=== PATIENT | female | born 1980 | race Hispanic/Latino ===

== ENCOUNTER 2017-11-16 09:56 | Inpatient (IN) | payer MEDICAID ==
[~2017-11-16] VITALS: Ht 162.6 cm; Wt 80.1 kg
[2017-11-16] VITALS (9 sets, daily range): BP systolic 96–107; BP diastolic 45–60
[2017-11-16] MEDS ORDERED: SODIUM CHLORIDE 0.9% 1000ML 1,000 ML IV ONE ×2 (10:32→11:24)
[2017-11-16 10:47] LABS: BASOPHILS % (AUTO) 0.6 % (0.0-5.0); EOSINOPHILS % (AUTO) 0.3 % (0.0-8.0); HEMATOCRIT 43.2 % (36-48); LYMPHOCYTES % (AUTO) 19.9 % (21.0-51.0); MEAN CORPUSCULAR HEMOGLOBIN 28.8 pg (27.0-33.0); MEAN CORPUSCULAR HGB CONC 34.9 g/dL (32.0-36.0); MEAN CORPUSCULAR VOLUME 82.6 fL (79-99); MONOCYTES % (AUTO) 4.9 % (3.0-13.0); NEUTROPHILS % (AUTO) 74.3 % (40.0-77.0); NUCLEATED RED BLOOD CELLS 0.1 % (0.0-0.19); PLATELET COUNT (AUTO) 342 K/uL (130-400); RED BLOOD CELL COUNT(AUTO) 5.23 MIL/uL (4.00-5.50); RED CELL DISTRIBUTION WIDTH 14.3 % (11.0-15.5); WHITE BLOOD COUNT (AUTO) 6.3 K/uL (4.8-10.8)
[2017-11-16 11:00] LABS: BILIRUBIN,TOTAL 0.9 mg/dL (0.2-1.0); POTASSIUM 4.6 mmol/L (3.5-5.1); TOTAL PROTEIN, SERUM 8.1 g/dL (6.0-8.3)
[2017-11-16] MEDS ORDERED: SODIUM CHLORIDE 0.9% 1000ML 1,000 ML IV SCH (11:48)
[2017-11-16] MEDS ORDERED: SODIUM CHLORIDE 0.9% 100 ML IV ONE (11:52)
[2017-11-16] MEDS ORDERED: INSULIN HUMULIN R 100 UNIT/ML 3ML ONE (11:54)
[2017-11-16] MEDS ORDERED: ACETAMINOPHEN 325 MG TAB PO PRN ×2 (12:00)
[2017-11-16] MEDS ORDERED: MORPHINE SULFATE 2 MG/ML 1ML SYG IV PRN (12:00)
[2017-11-16] MEDS ORDERED: ACETAMINOPHEN-CODEINE 300/30MG TAB PO PRN (12:00)
[2017-11-16] MEDS ORDERED: LACTULOSE 20 GM/30 ML UDCUP PO PRN (12:00)
[2017-11-16] MEDS ORDERED: ONDANSETRON HCL 4 MG/2 ML VIAL IV PRN (12:00)
[2017-11-16] MEDS ORDERED: MAG HYDROX/AL HYDROX/SIMETH ES 30 ML SUSP UDCUP PO PRN (12:00)
[2017-11-16] MEDS ORDERED: NITROGLYCERIN 0.4 MG SL TAB SL PRN (12:00)
[2017-11-16] MEDS ORDERED: HYDRALAZINE HCL 20 MG/ML VIAL IV PRN (12:00)
[2017-11-16] MEDS ORDERED: GUAIFENESIN-DM 200/20 MG 10 ML PO PRN (12:00)
[2017-11-16 12:07] LABS: ABG OXYGEN SATURATION 96.3 % (95.0-99.0); ABG PCO2 38 mmHg (32-45)
[2017-11-16 12:54] LABS: BILIRUBIN,URINE Negative (NEGATIVE); COLOR,URINE Yellow (YELLOW); GLUCOSE, URINE (UA) >=1000 mg/dL (NEGATIVE); KETONES,URINE Negative (NEGATIVE); LEUKOCYTE ESTERASE ,URINE Negative (NEGATIVE); NITRATE,URINE Negative (NEGATIVE); OCCULT BLOOD,URINE Negative (NEGATIVE); PH,URINE 5.5 (5.0-8.0); PROTEIN,URINE POS 2+ (NEGATIVE); UROBILINOGEN,URINE 0.2 mg/dL (0.2-1.0)
[2017-11-16 12:56] LABS: APPEARANCE,URINE CLEAR (CLEAR)
[2017-11-16] MEDS ORDERED: POTASSIUM CHLORIDE 20MEQ/100ML 100 ML IV PRN (13:15)
[2017-11-16] MEDS ORDERED: LIDOCAINE HCL-MPF 1% 2ML VIAL IVP PRN (13:15)
[2017-11-16] MEDS ORDERED: POTASSIUM CHLORIDE 10% ELIXIR 20 MEQ/15 ML UDCUP PO PRN (13:15)
[2017-11-16 13:16] LABS: BACTERIA,URINE Moderate /HPF (None Seen); RBC,URINE 0-1 /HPF (0-1); WBC,URINE 0-1 /HPF (0-1)
[2017-11-16] MEDS ORDERED: INSU10VI4 SQ (17:09)
[2017-11-16] MEDS ORDERED: LEVO150T11 PO (17:09)
[2017-11-16] MEDS ORDERED: LOSA50TA37 PO (17:09)
[2017-11-16] MEDS ORDERED: OMEP40CA37 PO (17:09)
[2017-11-16] MEDS ORDERED: FENO145T37 PO (17:09)
[2017-11-16] MEDS ORDERED: DEXTROSE 5 %-0.45 % NACL 1,000 ML IV ONE (18:18)
[2017-11-16 18:27] LABS: CREATININE 1.6 mg/dL (0.5-1.5); MAGNESIUM 1.6 mg/dL (1.80-2.40); POTASSIUM 4.2 mmol/L (3.5-5.1)
[2017-11-16] MEDS: DEXTROSE 5 %-0.45 % NACL 1,000 ML IV SCH (18:30)
[2017-11-17] VITALS (16 sets, daily range): BP systolic 89–120; BP diastolic 38–63
[2017-11-17] MEDS: DEXTROSE 5 %-0.45 % NACL 1,000 ML IV SCH ×2 (00:56→08:51)
[2017-11-17 04:10] LABS: HEMATOCRIT 35.4 % (36-48); MEAN CORPUSCULAR HEMOGLOBIN 28.9 pg (27.0-33.0); MEAN CORPUSCULAR HGB CONC 34.8 g/dL (32.0-36.0); MEAN CORPUSCULAR VOLUME 83.1 fL (79-99); PLATELET COUNT (AUTO) 275 K/uL (130-400); RED BLOOD CELL COUNT(AUTO) 4.26 MIL/uL (4.00-5.50); RED CELL DISTRIBUTION WIDTH 13.8 % (11.0-15.5); WHITE BLOOD COUNT (AUTO) 8.2 K/uL (4.8-10.8)
[2017-11-17 04:22] LABS: BAND NEUTROPHILS % (MANUAL) 13 % (0-2); EOSINOPHILS % (MANUAL) 6 % (1-6); LYMPHOCYTES % (MANUAL) 42 % (22-44); MAN.DIFF COMMENT-IMPRESSION MANUAL DIFFERENTIAL; MONOCYTES % (MANUAL) 2 % (2-9); SEGMENTED NEUTROPHILS % 37 % (40-70)
[2017-11-17 04:27] LABS: ALBUMIN 2.4 g/dL (3.5-5.0); BILIRUBIN,TOTAL 0.3 mg/dL (0.2-1.0); CREATININE 1.2 mg/dL (0.5-1.5); MAGNESIUM 1.6 mg/dL (1.80-2.40); POTASSIUM 3.5 mmol/L (3.5-5.1); TOTAL PROTEIN, SERUM 6.7 g/dL (6.0-8.3)
[2017-11-17] MEDS: ENOXAPARIN SODIUM 40 MG/0.4 ML SYRINGE SQ SCH (08:52)
[2017-11-17] MEDS ORDERED: FAMOTIDINE/PF 20 MG/2 ML VIAL IV SCH (09:00)
[2017-11-17] MEDS: SODIUM CHLORIDE 0.9% 1000ML 1,000 ML IV SCH ×3 (10:32→21:53)
[2017-11-17] MEDS: PANTOPRAZOLE SODIUM 40 MG TABLET.DR PO SCH (10:32)
[2017-11-17] MEDS ORDERED: INSULIN LISPRO PROTAMINE SQ SCH (11:30)
[2017-11-17] MEDS ORDERED: INSULIN LISPRO SQ SCH (11:30)
[2017-11-17] MEDS ORDERED: [UNRECOGNIZED DRUG - OTHER] SQ SCH (11:30)
[2017-11-17] MEDS: INSULIN HUMULIN 70/30 100 UNIT/ML 3ML SQ SCH ×2 (11:53→16:21)
[2017-11-18 03:17] VITALS: BP 101/56
[2017-11-18 04:04] LABS: CREATININE 0.9 mg/dL (0.5-1.5); POTASSIUM 3.2 mmol/L (3.5-5.1)
[2017-11-18] MEDS: SODIUM CHLORIDE 0.9% 1000ML 1,000 ML IV SCH ×3 (04:29→20:26)
[2017-11-18] MEDS: POTASSIUM CHLORIDE 20 MEQ ERTAB PO PRN ×3 (04:52→12:18)
[2017-11-18] MEDS: LEVOTHYROXINE 150 MCG TABLET PO SCH (06:18)
[2017-11-18] MEDS: INSULIN HUMULIN 70/30 100 UNIT/ML 3ML SQ SCH ×3 (06:24→16:24)
[2017-11-18 07:37] VITALS: BP 115/60
[2017-11-18] MEDS: FENOFIBRATE NANOCRYSTALLIZED 145 MG TAB PO SCH (07:54)
[2017-11-18] MEDS: LOSARTAN 50 MG TABLET PO SCH (07:54)
[2017-11-18] MEDS: PANTOPRAZOLE SODIUM 40 MG TABLET.DR PO SCH (07:54)
[2017-11-18] MEDS: ENOXAPARIN SODIUM 40 MG/0.4 ML SYRINGE SQ SCH (07:54)
[2017-11-18] MEDS ORDERED: LEVOTHYROXINE 150 MCG TABLET PO SCH (09:00)
[2017-11-18 11:29] VITALS: BP 111/61
[2017-11-18 16:00] VITALS: BP 109/62
[2017-11-18 18:51] VITALS: BP 107/66
[2017-11-18] MEDS ORDERED: INSULIN REGULAR, HUMAN 3ML 100 UNIT in SODIUM CHLORIDE 0.9% 99 ML IV SCH ×2 (20:15)
[2017-11-18 22:57] VITALS: BP_SYST 114; BP_SYST 166; BP_DIAS 60; BP_DIAS 85
[2017-11-19] MEDS: SODIUM CHLORIDE 0.9% 1000ML 1,000 ML IV SCH ×2 (00:19→05:44)
[2017-11-19 03:18] VITALS: BP 123/59
[2017-11-19 04:59] LABS: ALBUMIN 2.3 g/dL (3.5-5.0); BILIRUBIN,TOTAL 0.3 mg/dL (0.2-1.0); CREATININE 0.9 mg/dL (0.5-1.5); POTASSIUM 3.5 mmol/L (3.5-5.1); TOTAL PROTEIN, SERUM 6.5 g/dL (6.0-8.3)
[2017-11-19] MEDS: LEVOTHYROXINE 150 MCG TABLET PO SCH (05:42)
[2017-11-19] MEDS: POTASSIUM CHLORIDE 20 MEQ ERTAB PO PRN ×2 (05:43→09:04)
[2017-11-19] MEDS: INSULIN HUMULIN 70/30 100 UNIT/ML 3ML SQ SCH ×2 (06:04→11:51)
[2017-11-19 07:00] VITALS: BP 118/65
[2017-11-19] MEDS: PANTOPRAZOLE SODIUM 40 MG TABLET.DR PO SCH (09:04)
[2017-11-19] MEDS: FENOFIBRATE NANOCRYSTALLIZED 145 MG TAB PO SCH (09:04)
[2017-11-19] MEDS: LOSARTAN 50 MG TABLET PO SCH (09:04)
[2017-11-19] MEDS: ENOXAPARIN SODIUM 40 MG/0.4 ML SYRINGE SQ SCH (09:17)
[2017-11-19 11:00] VITALS: BP 124/69
== END 2017-11-19 12:55 | disposition home or self-care (01) | DRG 282 ==
LOC: EDH 09:56 → EDHIP 09:57 → 2CH 16:39 → 2DH 11-17 14:33
PROVIDERS: ADMIT Internal Medicine; ATTEND Internal Medicine
DX: K85.90 Acute pancreatitis without necrosis or infection, unspecified (principal); E10.10 Type 1 diabetes mellitus with ketoacidosis without coma; N17.9 Acute kidney failure, unspecified; K76.0 Fatty (change of) liver, not elsewhere classified; E03.9 Hypothyroidism, unspecified; E78.5 Hyperlipidemia, unspecified; I10 Essential (primary) hypertension; Z79.4 Long term (current) use of insulin; Z83.3 Family history of diabetes mellitus
CPT/HCPCS: 36415; 36600; 74176; 80048; 80053; 81001; 82009; 82150; 82803; 82948; 83690; 83735; 84100; 84478; 85025; 87040; 99291; J1650; J1815; J2405; J3490; J7030; J7042

== ENCOUNTER 2018-04-02 13:12 | Inpatient (IN) | payer MEDICAID ==
[~2018-04-02 13:12] MED LIST: FENO145T37 PO; INSU100V33 SQ; LEVO150T11 PO; LOSA50TA25 PO; OMEG1CAP31 PO; OMEP40CA37 PO
[2018-04-02] MEDS ORDERED: ONDANSETRON HCL 4 MG/2 ML VIAL ONE (13:57)
[2018-04-02] MEDS ORDERED: SODIUM CHLORIDE 0.9% 1000ML 1,000 ML IV ONE ×3 (13:57→18:36)
[2018-04-02] MEDS ORDERED: METOCLOPRAMIDE 10 MG/2 ML VIAL ONE (14:16)
[2018-04-02 14:17] LABS: APPEARANCE,URINE Clear (CLEAR); BILIRUBIN,URINE Negative (NEGATIVE); COLOR,URINE Yellow (YELLOW); GLUCOSE, URINE (UA) >=1000 mg/dL (NEGATIVE); KETONES,URINE >=80 mg/dL (NEGATIVE); LEUKOCYTE ESTERASE ,URINE Negative (NEGATIVE); NITRATE,URINE Negative (NEGATIVE); OCCULT BLOOD,URINE Small (NEGATIVE); PROTEIN,URINE 300 (NEGATIVE); UROBILINOGEN,URINE 0.2 mg/dL (0.2-1.0)
[2018-04-02 14:28] LABS: POTASSIUM 3.5 mmol/L (3.5-5.1)
[2018-04-02 15:05] LABS: BACTERIA,URINE Rare /HPF (None Seen); RBC,URINE None Seen /HPF (0-1); SQUAMOUS EPITHELIAL CELL,UR 0-2 /HPF (0-2); WBC,URINE 0-1 /HPF (0-1)
[2018-04-02 15:06] LABS: BASOPHILS % (AUTO) 0.9 % (0.0-5.0); EOSINOPHILS % (AUTO) 1.3 % (0.0-8.0); LYMPHOCYTES % (AUTO) 19.2 % (21.0-51.0); MEAN CORPUSCULAR HEMOGLOBIN 30.8 pg (27.0-33.0); MEAN CORPUSCULAR HGB CONC 36.2 g/dL (32.0-36.0); MEAN CORPUSCULAR VOLUME 85.1 fL (79-99); MONOCYTES % (AUTO) 4.5 % (3.0-13.0); NEUTROPHILS % (AUTO) 74.1 % (40.0-77.0); NUCLEATED RED BLOOD CELLS 0.4 % (0.0-0.19); PLATELET COUNT (AUTO) 307 K/uL (130-400); RED BLOOD CELL COUNT(AUTO) 4.82 MIL/uL (4.00-5.50); RED CELL DISTRIBUTION WIDTH 13.5 % (11.0-15.5); WHITE BLOOD COUNT (AUTO) 14.7 K/uL (4.8-10.8)
[2018-04-02] MEDS ORDERED: MORPHINE SULFATE 4 MG/1ML SYG ONE (15:08)
[2018-04-02 15:12] LABS: CREATININE 0.9 mg/dL (0.5-1.5)
[2018-04-02 15:14] LABS: BILIRUBIN,TOTAL 0.5 mg/dL (0.2-1.0)
[2018-04-02 15:15] LABS: ALBUMIN 3.2 g/dL (3.5-5.0); TOTAL PROTEIN, SERUM 7.3 g/dL (6.0-8.3)
[2018-04-02] MEDS ORDERED: PROMETHAZINE HCL 25 MG/ML 1ML AMPULE IM ONE (17:44)
[2018-04-02] MEDS ORDERED: SODIUM CHLORIDE 0.9% 1000ML 1,000 ML IV SCH (17:44)
[2018-04-02] MEDS ORDERED: INSULIN GLARGINE 100 UNITS/ML 10 ML VIAL SQ ONE (17:45)
[2018-04-02] MEDS ORDERED: MAG HYDROX/AL HYDROX/SIMETH ES 30 ML SUSP UDCUP PO PRN (17:45)
[2018-04-02] MEDS ORDERED: ZOLPIDEM TARTRATE 5 MG TAB PO PRN (17:45)
[2018-04-02] MEDS ORDERED: ACETAMINOPHEN 325 MG TAB PO PRN (17:45)
[2018-04-02] MEDS ORDERED: ZOSYN 3.375GM+NS 50ML 50 ML IV ONE (18:46)
[2018-04-02] MEDS ORDERED: SODIUM CHLORIDE 0.9% 50 ML IV ONE (18:55)
[2018-04-02 19:13] LABS: HEMOGLOBIN A1C 11.6 % (4.0-6.0)
[2018-04-02] MEDS: ZOSYN 3.375GM+NS 50ML 50 ML IV SCH (19:39)
[2018-04-02 19:53] VITALS: BP 163/76
[2018-04-02] MEDS: LACTATED RINGERS 1000ML 1,000 ML IV SCH (19:53)
[2018-04-02] MEDS: MORPHINE SULFATE 2 MG/ML 1ML SYG IV PRN (20:56)
[2018-04-02] MEDS: ONDANSETRON HCL 4 MG/2 ML VIAL IV PRN (20:57)
[2018-04-02 21:04] LABS: MAGNESIUM 1.6 mg/dL (1.80-2.40); THYROID STIMULATING HORMONE 2.61 uIU/mL (0.36-3.74)
[2018-04-02] MEDS: INSULIN LISPRO 100 UNIT/ML 3ML SQ SCH (21:06)
[2018-04-02 23:13] LABS: SODIUM SERUM 122 mmol/L (136-145)
[2018-04-02 23:14] LABS: PHOSPHORUS 2.5 mg/dL (2.5-4.9); UREA NITROGEN, BLOOD 10 mg/dL (7-18)
[2018-04-02 23:16] LABS: CREATININE 1.2 mg/dL (0.5-1.5); GLOMERULAR FILTR. RATE CALC 54 mL/min (>60)
[2018-04-02 23:25] LABS: CHLORIDE 90 mmol/L (101-111); GLUCOSE,RANDOM 441 mg/dL (70-105)
[2018-04-02 23:52] VITALS: BP 133/69
[2018-04-03] MEDS: INSULIN LISPRO 100 UNIT/ML 3ML SQ SCH ×4 (00:07→20:33)
[2018-04-03] MEDS: ONDANSETRON HCL 4 MG/2 ML VIAL IV PRN ×4 (02:36→23:02)
[2018-04-03] MEDS: MORPHINE SULFATE 2 MG/ML 1ML SYG IV PRN ×4 (02:37→23:02)
[2018-04-03 04:04] VITALS: BP 107/62
[2018-04-03] MEDS: ZOSYN 3.375GM+NS 50ML 50 ML IV SCH ×3 (04:55→20:37)
[2018-04-03 08:04] VITALS: BP 81/46
[2018-04-03] MEDS: PANTOPRAZOLE 40 MG/VIAL IVP SCH (08:54)
[2018-04-03] MEDS ORDERED: ENOXAPARIN SODIUM 40 MG/0.4 ML SYRINGE SQ SCH ×2 (09:00)
[2018-04-03 11:33] VITALS: BP 95/51
[2018-04-03] MEDS: LACTATED RINGERS 1000ML 1,000 ML IV SCH (12:03)
[2018-04-03 15:24] LABS: CARBON DIOXIDE 14 mmol/L (21-32); CHLORIDE 94 mmol/L (101-111); POTASSIUM 4.2 mmol/L (3.5-5.1); SODIUM SERUM 127 mmol/L (136-145)
[2018-04-03 16:29] VITALS: BP 96/55
[2018-04-03 16:36] LABS: GLUCOSE,RANDOM 516 mg/dL (70-105)
[2018-04-03] MEDS ORDERED: PHARMACY COMMUNICATION MISC SCH (17:00)
[2018-04-03] MEDS: SODIUM CHLORIDE 0.9% 1000ML 1,000 ML IV SCH ×3 (17:00→22:00)
[2018-04-03] MEDS ORDERED: SODIUM CHLORIDE 0.9% 1000ML 1,000 ML IV ONE ×2 (17:28→17:29)
[2018-04-03] MEDS ORDERED: SODIUM CHLORIDE 0.9% 1000ML 1,000 ML IV SCH (17:44)
[2018-04-03 19:27] VITALS: BP 109/56
[2018-04-03] MEDS: INSULIN GLARGINE 100 UNITS/ML 10 ML VIAL SQ SCH (20:36)
[2018-04-03 21:49] LABS: CARBON DIOXIDE 13 mmol/L (21-32); CHLORIDE 99 mmol/L (101-111); POTASSIUM 3.7 mmol/L (3.5-5.1); SODIUM SERUM 131 mmol/L (136-145)
[2018-04-03 21:58] LABS: GLUCOSE,RANDOM 440 mg/dL (70-105)
[2018-04-03 22:27] LABS: UREA NITROGEN, BLOOD 22 mg/dL (7-18)
[2018-04-03 22:28] LABS: CREATININE 1.8 mg/dL (0.5-1.5); GLOMERULAR FILTR. RATE CALC 34 mL/min (>60)
[2018-04-03 23:41] VITALS: BP 93/47
[2018-04-04] MEDS: INSULIN LISPRO 100 UNIT/ML 3ML SQ SCH ×8 (00:56→21:00)
[2018-04-04] MEDS: SODIUM CHLORIDE 0.9% 1000ML 1,000 ML IV SCH ×7 (01:17→14:59)
[2018-04-04 03:52] VITALS: BP 101/52
[2018-04-04 05:06] LABS: POTASSIUM 4.3 mmol/L (3.5-5.1); SODIUM SERUM 139 mmol/L (136-145)
[2018-04-04 05:07] LABS: CARBON DIOXIDE 20 mmol/L (21-32); CHLORIDE 108 mmol/L (101-111); GLOMERULAR FILTR. RATE CALC 30 mL/min (>60); GLUCOSE,RANDOM 231 mg/dL (70-105); UREA NITROGEN, BLOOD 28 mg/dL (7-18)
[2018-04-04] MEDS: ZOSYN 3.375GM+NS 50ML 50 ML IV SCH ×2 (05:32→13:39)
[2018-04-04] MEDS: ONDANSETRON HCL 4 MG/2 ML VIAL IV PRN ×4 (05:43→17:13)
[2018-04-04] MEDS: INSULIN GLARGINE 100 UNITS/ML 10 ML VIAL SQ SCH ×2 (06:08→21:46)
[2018-04-04 07:57] VITALS: BP 96/46
[2018-04-04] MEDS: PANTOPRAZOLE 40 MG/VIAL IVP SCH (10:09)
[2018-04-04 12:19] VITALS: BP 95/51
[2018-04-04 13:17] LABS: CARBON DIOXIDE 19 mmol/L (21-32); CHLORIDE 107 mmol/L (101-111); GLOMERULAR FILTR. RATE CALC 30 mL/min (>60); GLUCOSE,RANDOM 226 mg/dL (70-105); POTASSIUM 3.4 mmol/L (3.5-5.1); SODIUM SERUM 138 mmol/L (136-145); UREA NITROGEN, BLOOD 27 mg/dL (7-18)
[2018-04-04 16:43] VITALS: BP 93/51
[2018-04-04 19:00] VITALS: BP 98/55
[2018-04-04] MEDS ORDERED: LACTULOSE 20 GM/30 ML UDCUP PO SCH (21:00)
[2018-04-04] MEDS: CITRIC ACID/SODIUM CITRATE 30 ML UDCUP PO SCH (21:40)
[2018-04-04 23:00] VITALS: BP 113/63
[2018-04-05 03:00] VITALS: BP 114/57
[2018-04-05 04:09] LABS: HEMATOCRIT 29.7 % (36-48); MEAN CORPUSCULAR HGB CONC 35.8 g/dL (32.0-36.0); PLATELET COUNT (AUTO) 181 K/uL (130-400); RED BLOOD CELL COUNT(AUTO) 3.54 MIL/uL (4.00-5.50); RED CELL DISTRIBUTION WIDTH 14.7 % (11.0-15.5)
[2018-04-05 04:28] LABS: CREATININE 1.4 mg/dL (0.5-1.5); MAGNESIUM 1.5 mg/dL (1.80-2.40); PHOSPHORUS 1.1 mg/dL (2.5-4.9); POTASSIUM 3.1 mmol/L (3.5-5.1)
[2018-04-05] MEDS: SODIUM CHLORIDE 0.9% 1000ML 1,000 ML IV SCH (05:41)
[2018-04-05] MEDS: INSULIN LISPRO 100 UNIT/ML 3ML SQ SCH ×7 (07:30→21:34)
[2018-04-05 08:00] VITALS: BP 105/59
[2018-04-05] MEDS ORDERED: POTASSIUM CHLORIDE 20MEQ/100ML 100 ML IV PRN (10:15)
[2018-04-05] MEDS ORDERED: LIDOCAINE HCL-MPF 1% 2ML VIAL IVP PRN (10:15)
[2018-04-05] MEDS: CITRIC ACID/SODIUM CITRATE 30 ML UDCUP PO SCH ×3 (11:40→22:52)
[2018-04-05 12:00] VITALS: BP 118/57
[2018-04-05] MEDS: POTASSIUM CHLORIDE 20 MEQ ERTAB PO PRN ×3 (13:30→18:52)
[2018-04-05 16:00] VITALS: BP 127/71
[2018-04-05] MEDS: FISH OIL 1000 MG/CAP PO SCH (17:05)
[2018-04-05] MEDS ORDERED: POTASSIUM CHLORIDE 40 MEQ in SODIUM CHLORIDE 0.9% 1000ML 1,000 ML IV SCH (18:41)
[2018-04-05 20:28] VITALS: BP 127/60
[2018-04-05] MEDS ORDERED: FENOFIBRATE NANOCRYSTALLIZED 145 MG TAB PO SCH (21:00)
[2018-04-05] MEDS: INSULIN GLARGINE 100 UNITS/ML 10 ML VIAL SQ SCH (21:35)
[2018-04-06 00:34] VITALS: BP 122/58
[2018-04-06 04:04] VITALS: BP 142/67
[2018-04-06] MEDS ORDERED: LEVOTHYROXINE 150 MCG TABLET PO SCH (06:30)
[2018-04-06] MEDS: INSULIN LISPRO 100 UNIT/ML 3ML SQ SCH ×2 (06:42→06:50)
[2018-04-06] MEDS ORDERED: PANTOPRAZOLE SODIUM 40 MG TABLET.DR PO SCH (07:30)
[2018-04-06 08:00] VITALS: BP 131/62
[2018-04-06] MEDS: CITRIC ACID/SODIUM CITRATE 30 ML UDCUP PO SCH (08:33)
[2018-04-06] MEDS ORDERED: LOSARTAN 50 MG TABLET PO SCH (09:00)
[2018-04-06] MEDS ORDERED: INSU100V SQ (09:55)
[2018-04-06] MEDS ORDERED: INSLAN SQ (09:55)
[2018-04-06] MEDS: FISH OIL 1000 MG/CAP PO SCH (10:09)
[2018-04-06 12:00] VITALS: BP 126/74
== END 2018-04-06 12:54 | disposition home or self-care (01) | DRG 282 ==
LOC: EDH 13:12 → 2DH 13:13 → 4BH 04-05 17:50 → 3BH 04-06 05:59
PROVIDERS: ADMIT Internal Medicine; ATTEND Internal Medicine
DX: K85.90 Acute pancreatitis without necrosis or infection, unspecified (principal); R65.11 Systemic inflammatory response syndrome (SIRS) of non-infectious origin with acute organ dysfunction; N17.9 Acute kidney failure, unspecified; E11.22 Type 2 diabetes mellitus with diabetic chronic kidney disease; E11.65 Type 2 diabetes mellitus with hyperglycemia; E87.2 Acidosis; Z79.4 Long term (current) use of insulin; E86.1 Hypovolemia; E87.6 Hypokalemia; N18.9 Chronic kidney disease, unspecified; E78.5 Hyperlipidemia, unspecified; Z90.49 Acquired absence of other specified parts of digestive tract; Z82.49 Family history of ischemic heart disease and other diseases of the circulatory system; Z83.3 Family history of diabetes mellitus
CPT/HCPCS: 36415; 74176; 80048; 80053; 80339; 81001; 82010; 82150; 82948; 83036; 83605; 83690; 83735; 84100; 84443; 85025; 85027; 87040; 87088; C9113; J1650; J2270; J2405; J2543; J2550; J2765; J3480; J7030; J7120

== ENCOUNTER 2018-11-13 21:18 | Inpatient (IN) | payer MEDICAID | END 2018-11-18 15:30 | disposition home or self-care (01) | LOC: EDH 21:18 → WSH 11-17 19:55 → EDHIP 21:19 → 4CH 11-14 02:45 | DX: K85.90 Acute pancreatitis without necrosis or infection, unspecified (principal); E11.9 Type 2 diabetes mellitus without complications; E78.2 Mixed hyperlipidemia; I10 Essential (primary) hypertension; E87.6 Hypokalemia ==

== ENCOUNTER 2019-11-17 14:34 | Inpatient (IN) | payer MEDICAID ==
[~2019-11-17] VITALS: Ht 160 cm; Wt 77.1 kg
[~2019-11-17 14:34] MED LIST changes: +ATOR40TA69 PO; +FENO145T26 PO; -FENO145T37 PO; +INSLAN SQ; +INSU100V SQ; -INSU100V33 SQ; -LOSA50TA25 PO; +LOSA50TA64 PO; +NIAC250T34 PO; +OMEP40CA13 PO; -OMEP40CA37 PO
[2019-11-17 15:07] LABS: APPEARANCE,URINE Clear (CLEAR); BILIRUBIN,URINE Negative (NEGATIVE); COLOR,URINE Yellow (YELLOW); GLUCOSE, URINE (UA) >=1000 mg/dL (NEGATIVE); KETONES,URINE 15 mg/dL (NEGATIVE); LEUKOCYTE ESTERASE ,URINE Negative (NEGATIVE); NITRATE,URINE Negative (NEGATIVE); OCCULT BLOOD,URINE Negative (NEGATIVE); PROTEIN,URINE 300 mg/dL (NEGATIVE)
[2019-11-17 15:17] LABS: BACTERIA,URINE Rare /HPF (None Seen); RBC,URINE None Seen /HPF (0-1); WBC,URINE 0-1 /HPF (0-1)
[2019-11-17 15:18] LABS: SQUAMOUS EPITHELIAL CELL,UR 0-2 /HPF (0-2)
[2019-11-17 15:40] LABS: BASOPHILS % (AUTO) 0.4 % (0.0-5.0); EOSINOPHILS % (AUTO) 0.8 % (0.0-8.0); HEMATOCRIT 39.5 % (36-48); LYMPHOCYTES % (AUTO) 11.2 % (21.0-51.0); MEAN CORPUSCULAR HGB CONC 35.9 g/dL (32.0-36.0); MEAN CORPUSCULAR VOLUME 83.3 fL (79-99); MONOCYTES % (AUTO) 4.1 % (3.0-13.0); NEUTROPHILS % (AUTO) 83.1 % (40.0-77.0); PLATELET COUNT (AUTO) 333 K/uL (130-400); RED BLOOD CELL COUNT(AUTO) 4.74 MIL/uL (4.00-5.50); RED CELL DISTRIBUTION WIDTH 13.2 % (11.0-15.5); WHITE BLOOD COUNT (AUTO) 13.8 K/uL (4.8-10.8)
[2019-11-17 15:59] LABS: BILIRUBIN,TOTAL 0.9 mg/dL (0.2-1.0); POTASSIUM 5.6 mmol/L (3.5-5.1)
[2019-11-17] MEDS ORDERED: ONDANSETRON HCL 4 MG/2 ML VIAL ONE ×2 (16:35→19:43)
[2019-11-17] MEDS ORDERED: SODIUM CHLORIDE 0.9% 100 ML IV ONE (16:35)
[2019-11-17 16:36] LABS: CREATININE 0.9 mg/dL (0.5-1.5)
[2019-11-17 16:37] LABS: ALBUMIN 3.5 g/dL (3.5-5.0); TOTAL PROTEIN, SERUM 6.5 g/dL (6.0-8.3)
[2019-11-17] MEDS ORDERED: INSULIN HUMULIN R 100 UNIT/ML 3ML ONE (16:37)
[2019-11-17] MEDS ORDERED: FAMOTIDINE/PF 20 MG/2 ML VIAL IV ONE (16:59)
[2019-11-17] MEDS ORDERED: KETOROLAC TROMETHAMINE 30MG/ML ONE (16:59)
[2019-11-17 18:05] LABS: LDL DIRECT 75 mg/dL (0-99)
[2019-11-17 18:27] LABS: CHOLESTEROL 564 mg/dL (<200); HDL CHOLESTEROL 57 mg/dL (35-85); TRIGLYCERIDES 4134 mg/dL (30-200)
[2019-11-17] MEDS ORDERED: DIPHENHYDRAMINE HCL 25 MG CAPSULE PO PRN (19:00)
[2019-11-17] MEDS ORDERED: NITROGLYCERIN 0.4 MG SL TAB SL PRN (19:00)
[2019-11-17] MEDS ORDERED: ACETAMINOPHEN 325 MG TAB PO PRN ×2 (19:00)
[2019-11-17] MEDS ORDERED: GUAIFENESIN-DM 200/20 MG 10 ML PO PRN (19:00)
[2019-11-17] MEDS ORDERED: MAG HYDROX/AL HYDROX/SIMETH ES 30 ML SUSP UDCUP PO PRN (19:00)
[2019-11-17] MEDS ORDERED: DiphenhydrAMINE HCL 50 MG/ML VIAL IV PRN (19:00)
[2019-11-17] MEDS ORDERED: LACTULOSE 20 GM/30 ML UDCUP PO PRN (19:00)
[2019-11-17] MEDS ORDERED: ALBUTEROL SULFATE 0.083% 2.5 MG/3 ML INH IH PRN (19:00)
[2019-11-17] MEDS: FAMOTIDINE/PF 20 MG/2 ML VIAL IV SCH (21:00)
[2019-11-17 21:27] LABS: ABG HCO3 26.4 mmol/L (21.0-28.0); ABG OXYGEN SATURATION 95.5 % (95.0-99.0); ABG PCO2 45 mmHg (32-45)
[2019-11-17 22:07] VITALS: BP 147/74
[2019-11-17 22:15] VITALS: BP 153/70
[2019-11-17 22:24] LABS: CREATININE 0.8 mg/dL (0.5-1.5); POTASSIUM 4.1 mmol/L (3.5-5.1)
[2019-11-17 22:30] VITALS: BP 159/69
[2019-11-17 22:45] VITALS: BP 167/74
[2019-11-17 23:00] VITALS: BP 157/69
[2019-11-17] MEDS: DEXTROSE 5 % AND 0.9 % NACL 1,000 ML IV SCH (23:00)
--- NOTE | 2019-11-17 23:21 | NUR ---
2206 Patient admitted from ER. Insulin drip infusing at 1 unit/hr into patent left arm 20g IV. Glucometer done. Results 310/ Insulin drip increased to 5 units/hr. [address] Garcia. Informed of new consult. Report given on pt status. Order received.
[2019-11-17 23:30] VITALS: BP 161/80
[2019-11-18] VITALS (25 sets, daily range): BP systolic 100–151; BP diastolic 54–76
[2019-11-18] MEDS: DEXTROSE 5 % AND 0.9 % NACL 1,000 ML IV SCH ×4 (03:00→23:27)
[2019-11-18 05:00] LABS: BASOPHILS % (AUTO) 0.3 % (0.0-5.0); EOSINOPHILS % (AUTO) 1.5 % (0.0-8.0); HEMATOCRIT 34.4 % (36-48); MEAN CORPUSCULAR HEMOGLOBIN 28.6 pg (27.0-33.0); MEAN CORPUSCULAR HGB CONC 34.6 g/dL (32.0-36.0); MEAN CORPUSCULAR VOLUME 82.7 fL (79-99); MONOCYTES % (AUTO) 7.4 % (3.0-13.0); NEUTROPHILS % (AUTO) 73.4 % (40.0-77.0); PLATELET COUNT (AUTO) 234 K/uL (130-400); RED BLOOD CELL COUNT(AUTO) 4.16 MIL/uL (4.00-5.50); RED CELL DISTRIBUTION WIDTH 13.1 % (11.0-15.5); WHITE BLOOD COUNT (AUTO) 9.9 K/uL (4.8-10.8)
[2019-11-18 05:39] LABS: ALBUMIN 2.4 g/dL (3.5-5.0); BILIRUBIN,TOTAL 0.4 mg/dL (0.2-1.0); CREATININE 0.8 mg/dL (0.5-1.5); POTASSIUM 3.3 mmol/L (3.5-5.1); TOTAL PROTEIN, SERUM 6.6 g/dL (6.0-8.3)
[2019-11-18] MEDS ORDERED: MAGNESIUM 2GM PREMIX 50ML 50 ML IV PRN (06:45)
[2019-11-18] MEDS ORDERED: POTASSIUM CHLORIDE 10MEQ/100ML 100 ML IV PRN (06:45)
[2019-11-18] MEDS ORDERED: POTASSIUM CHLORIDE 10% ELIXIR 20 MEQ/15 ML UDCUP PO PRN (07:00)
[2019-11-18] MEDS: ENOXAPARIN SODIUM 30 MG/0.3 ML SQ SCH (08:50)
[2019-11-18] MEDS: FAMOTIDINE/PF 20 MG/2 ML VIAL IV SCH ×2 (08:51→20:16)
[2019-11-18] MEDS: POTASSIUM CHLORIDE 20MEQ/100ML 100 ML IV PRN ×3 (08:54→22:59)
[2019-11-18] MEDS: KETOROLAC TROMETHAMINE 30MG/ML IV PRN (09:16)
[2019-11-18] MEDS ORDERED: MORPHINE SULFATE 2 MG/ML 1ML SYG IM PRN (10:00)
[2019-11-18] MEDS: INSULIN REGULAR, HUMAN 3ML 100 UNIT in SODIUM CHLORIDE 0.9% 99 ML IV PRN ×2 (10:18)
[2019-11-18 10:24] LABS: CREATININE 0.7 mg/dL (0.5-1.5); POTASSIUM 4.3 mmol/L (3.5-5.1)
--- NOTE | 2019-11-18 16:26 | NUR ---
INITIAL Call placed to pt's room. Spoke w Shelley (pts mother) to discuss dcp. Per Mrs Reed pt lives w her. Prior to admission she was independent w ambulation and ADLs. She does not own any DME. Pt has provider services but mother is not aware of # of hours. Mrs Reed mentions that pt usually manages her DM and self injects insulin. Per Mrs Reed she drives pt where needed. DCP remains for [place]. CM to continue to follow and wait for Md recommendations. Addendum: 11/19/19 at 1630 by EDDIE EVANS Amended: Links added.
[2019-11-18] MEDS: MORPHINE SULFATE 2 MG/ML 1ML SYG IVP PRN (17:10)
[2019-11-18 17:54] LABS: CREATININE 0.8 mg/dL (0.5-1.5); POTASSIUM 3.5 mmol/L (3.5-5.1)
[2019-11-18] MEDS: ONDANSETRON HCL 4 MG/2 ML VIAL IV PRN (21:30)
[2019-11-18 22:23] LABS: CREATININE 0.7 mg/dL (0.5-1.5); POTASSIUM 3.8 mmol/L (3.5-5.1)
[2019-11-18] MEDS: LIDOCAINE HCL-MPF 1% 2ML VIAL IJ PRN (23:00)
[2019-11-19] VITALS (24 sets, daily range): BP systolic 98–140; BP diastolic 44–86
[2019-11-19 03:57] LABS: BASOPHILS % (AUTO) 0.1 % (0.0-5.0); EOSINOPHILS % (AUTO) 2.8 % (0.0-8.0); LYMPHOCYTES % (AUTO) 28.3 % (21.0-51.0); MEAN CORPUSCULAR HEMOGLOBIN 27.7 pg (27.0-33.0); MEAN CORPUSCULAR HGB CONC 32.6 g/dL (32.0-36.0); MEAN CORPUSCULAR VOLUME 85.2 fL (79-99); MONOCYTES % (AUTO) 6.5 % (3.0-13.0); PLATELET COUNT (AUTO) 189 K/uL (130-400); RED BLOOD CELL COUNT(AUTO) 3.64 MIL/uL (4.00-5.50); RED CELL DISTRIBUTION WIDTH 13.7 % (11.0-15.5)
[2019-11-19 04:26] LABS: ALBUMIN 2.2 g/dL (3.5-5.0); BILIRUBIN,TOTAL 0.2 mg/dL (0.2-1.0); CREATININE 0.7 mg/dL (0.5-1.5); POTASSIUM 3.9 mmol/L (3.5-5.1)
[2019-11-19] MEDS: DEXTROSE 5 % AND 0.9 % NACL 1,000 ML IV SCH ×2 (07:55→16:38)
[2019-11-19] MEDS: FAMOTIDINE/PF 20 MG/2 ML VIAL IV SCH ×2 (08:06→19:32)
[2019-11-19] MEDS: ENOXAPARIN SODIUM 30 MG/0.3 ML SQ SCH (08:07)
[2019-11-19 09:44] LABS: CREATININE 0.7 mg/dL (0.5-1.5); POTASSIUM 3.7 mmol/L (3.5-5.1)
[2019-11-19] MEDS: POTASSIUM CHLORIDE 20MEQ/100ML 100 ML IV PRN ×2 (10:17→17:15)
[2019-11-19] MEDS: KETOROLAC TROMETHAMINE 30MG/ML IV PRN (13:10)
[2019-11-19] MEDS ORDERED: FENOFIBRATE NANOCRYSTALLIZED 145 MG TAB PO SCH (16:30)
[2019-11-19 16:38] LABS: CREATININE 0.6 mg/dL (0.5-1.5); POTASSIUM 3.8 mmol/L (3.5-5.1)
[2019-11-19] MEDS ORDERED: FENOFIBRATE NANOCRYSTALLIZED 145 MG TAB ONE (16:51)
[2019-11-19] MEDS: INSULIN REGULAR, HUMAN 3ML 100 UNIT in SODIUM CHLORIDE 0.9% 99 ML IV PRN ×2 (17:11)
[2019-11-19] MEDS: MORPHINE SULFATE 2 MG/ML 1ML SYG IVP PRN (17:27)
[2019-11-19] MEDS: ONDANSETRON HCL 4 MG/2 ML VIAL IV PRN (18:30)
[2019-11-19 22:52] LABS: CREATININE 0.7 mg/dL (0.5-1.5); POTASSIUM 4.1 mmol/L (3.5-5.1)
[2019-11-20] VITALS (21 sets, daily range): BP systolic 97–174; BP diastolic 55–81
[2019-11-20] MEDS: DEXTROSE 5 % AND 0.9 % NACL 1,000 ML IV SCH ×2 (01:15→11:00)
[2019-11-20 02:33] LABS: BASOPHILS % (AUTO) 0.4 % (0.0-5.0); EOSINOPHILS % (AUTO) 3.2 % (0.0-8.0); LYMPHOCYTES % (AUTO) 32.1 % (21.0-51.0); MEAN CORPUSCULAR HEMOGLOBIN 27.7 pg (27.0-33.0); MEAN CORPUSCULAR HGB CONC 31.9 g/dL (32.0-36.0); MEAN CORPUSCULAR VOLUME 86.8 fL (79-99); MONOCYTES % (AUTO) 6.7 % (3.0-13.0); NEUTROPHILS % (AUTO) 57.3 % (40.0-77.0); PLATELET COUNT (AUTO) 163 K/uL (130-400); RED BLOOD CELL COUNT(AUTO) 3.57 MIL/uL (4.00-5.50); RED CELL DISTRIBUTION WIDTH 14.3 % (11.0-15.5); WHITE BLOOD COUNT (AUTO) 7.2 K/uL (4.8-10.8)
[2019-11-20 02:49] LABS: ALBUMIN 2.2 g/dL (3.5-5.0); BILIRUBIN,TOTAL 0.2 mg/dL (0.2-1.0); CREATININE 0.7 mg/dL (0.5-1.5); TOTAL PROTEIN, SERUM 6.1 g/dL (6.0-8.3)
[2019-11-20] MEDS: KETOROLAC TROMETHAMINE 30MG/ML IV PRN (06:23)
[2019-11-20] MEDS: FENOFIBRATE NANOCRYSTALLIZED 145 MG TAB PO SCH (09:09)
[2019-11-20] MEDS: ENOXAPARIN SODIUM 30 MG/0.3 ML SQ SCH (09:09)
[2019-11-20] MEDS: FAMOTIDINE/PF 20 MG/2 ML VIAL IV SCH ×2 (09:09→20:02)
[2019-11-20 10:37] LABS: CREATININE 0.7 mg/dL (0.5-1.5); POTASSIUM 3.9 mmol/L (3.5-5.1)
[2019-11-20] MEDS ORDERED: INSULIN REGULAR, HUMAN 3ML 100 UNIT in SODIUM CHLORIDE 0.9% 99 ML IV PRN ×2 (13:00)
[2019-11-20] MEDS: FISH OIL 1000 MG/CAP PO SCH ×2 (14:49→21:50)
[2019-11-20 18:36] LABS: CREATININE 0.7 mg/dL (0.5-1.5)
[2019-11-20 18:44] LABS: POTASSIUM 2.8 mmol/L (3.5-5.1)
[2019-11-20] MEDS: POTASSIUM CHLORIDE 20MEQ/100ML 100 ML IV PRN (19:32)
[2019-11-20] MEDS ORDERED: DEXTROSE 5%-WATER 1,000 ML IV SCH (19:45)
[2019-11-20] MEDS ORDERED: DEXTROSE 50%-WATER 50 ML DISP.SYRIN IV PRN (20:00)
[2019-11-20] MEDS ORDERED: GLUCAGON 1MG KIT 1 MG ML IM PRN (20:00)
[2019-11-20] MEDS ORDERED: DEXTROSE 5%-WATER 1,000 ML IV ONE (20:01)
[2019-11-20] MEDS: LIDOCAINE HCL-MPF 1% 2ML VIAL IJ PRN (20:02)
[2019-11-20] MEDS: INSULIN LISPRO 100 UNIT/ML 3ML SQ SCH ×2 (20:09→20:10)
[2019-11-20] MEDS ORDERED: INSULIN GLARGINE 100 UNITS/ML 10 ML VIAL SQ SCH (21:00)
[2019-11-20] MEDS ORDERED: ATORVASTATIN CALCIUM 40 MG TABLET PO SCH (21:00)
--- NOTE | 2019-11-20 21:30 | NUR ---
TRANSFER PATIENT TRANSFERRED FROM ROOM 207 TO 430 VIA WHEELCHAIR. MOTHER AT THE BEDSIDE. PATIENT AAO BREATHING REGULAR AND UNLABORED ON ROOM AIR. FSBS RECHECK 68. PATIENT ASYMPTOMATIC. GIVEN 250 ML OF APPLE JUICE. D5W INFUSING WITH POTASSIUM. Addendum: 11/20/19 at 2307 by JOVANY GIRALDO RN RN REPORT GIVEN TO CURRY RENTERIA
--- NOTE | 2019-11-20 22:10 | NUR ---
RECEIVED PT RECEIVED IN ROOM, AAO BUT WITH DELAYED RESPONSE. NO DISTRESS NOTED. PT'S MOTHER WITH PT AT BEDSIDE. WITH ONGOING IV POTASSIUM WHICH PT COMPLAINTS TO BE HURTING HER. PIV TO RFA NOTED TO BE INFILTRATED. PLACED IVF TO PIV ON LAC. DISCONTINUED PIV ON RFA WITH CATHETER INTACT. DECREASED RATE OF POTASSIUM IV FOR NOW. EXPLAINED THAT PT NEEDS MED. WILL CONTINUE TO MONITOR.
[2019-11-20] MEDS ORDERED: LIDOCAINE HCL-MPF 1% 2ML VIAL IV PRN (22:45)
[2019-11-20] MEDS ORDERED: POTASSIUM CHLORIDE 20MEQ/100ML 100 ML IV PRN (22:45)
[2019-11-20] MEDS ORDERED: POTASSIUM CHLORIDE 20 MEQ ERTAB PO PRN (22:45)
[2019-11-20] MEDS ORDERED: POTASSIUM CHLORIDE 10% ELIXIR 20 MEQ/15 ML UDCUP PO PRN (22:45)
[2019-11-20] MEDS: POTASSIUM CHLORIDE 20 MEQ ERTAB PO PRN (23:53)
[2019-11-21 00:25] VITALS: BP 142/67
[2019-11-21] MEDS: POTASSIUM CHLORIDE 20 MEQ ERTAB PO PRN ×3 (02:00→05:52)
--- NOTE | 2019-11-21 02:00 | NUR ---
MEDS AWAKENED PT FOR DUE POTASSIUM PO PER PROTOCOL COVERAGE. TOLERATED MED WELL. ENCOURAGED PT TO GO BACK TO SLEEP. KEPT COMFORTABLE. PT'S MOTHER ASLEEP AT BEDSIDE.
[2019-11-21 03:50] VITALS: BP 137/58
[2019-11-21] MEDS: FISH OIL 1000 MG/CAP PO SCH ×2 (05:51→14:41)
--- NOTE | 2019-11-21 05:51 | NUR ---
MEDS HIGHWAY DESIGN ENGINEER IN TO DRAW BLOOD. PT AND FAMILY REFUSING BLOOD DRAW AND EXPLAINED THAT LEVELS ARE NEEDED FOR RE-CHECK SINCE POTASSIUM REPLACEMENTS WERE GIVEN TO PT. PT AND FAMILY AGREED TO BLOOD DRAW. DUE MEDS ADMINISTERED, TOLERATED WELL. FOR MORE CARE.
[2019-11-21 06:23] LABS: HEMOGLOBIN A1C 13.2 % (4.0-6.0)
[2019-11-21 06:26] LABS: BASOPHILS % (AUTO) 0.3 % (0.0-5.0); EOSINOPHILS % (AUTO) 3.6 % (0.0-8.0); LYMPHOCYTES % (AUTO) 37.5 % (21.0-51.0); MEAN CORPUSCULAR HEMOGLOBIN 27.4 pg (27.0-33.0); MEAN CORPUSCULAR VOLUME 85.7 fL (79-99); MONOCYTES % (AUTO) 7.5 % (3.0-13.0); NEUTROPHILS % (AUTO) 50.8 % (40.0-77.0); PLATELET COUNT (AUTO) 175 K/uL (130-400); RED CELL DISTRIBUTION WIDTH 14.3 % (11.0-15.5); WHITE BLOOD COUNT (AUTO) 6.1 K/uL (4.8-10.8)
[2019-11-21 06:37] LABS: % IRON SATURATION 22.4 % (22-44)
[2019-11-21 06:46] LABS: MAGNESIUM 1.7 mg/dL (1.80-2.40); PHOSPHORUS 1.7 mg/dL (2.5-4.9); POTASSIUM 4.7 mmol/L (3.5-5.1); THYROID STIMULATING HORMONE 6.93 uIU/mL (0.36-3.74)
[2019-11-21] MEDS: INSULIN LISPRO 100 UNIT/ML 3ML SQ SCH ×6 (06:56→16:33)
[2019-11-21 07:00] VITALS: BP 131/74
[2019-11-21] MEDS ORDERED: ENOXAPARIN SODIUM 40 MG/0.4 ML SYRINGE SQ SCH (09:00)
[2019-11-21] MEDS: FENOFIBRATE NANOCRYSTALLIZED 145 MG TAB PO SCH (09:59)
[2019-11-21] MEDS: FAMOTIDINE/PF 20 MG/2 ML VIAL IV SCH (09:59)
[2019-11-21 11:00] VITALS: BP 148/72
[2019-11-21 16:00] VITALS: BP 139/72
[2019-11-21] MEDS ORDERED: INSU100V SQ (16:15)
[2019-11-21] MEDS ORDERED: INSLAN SQ (16:15)
--- NOTE | 2019-11-21 16:49 | NUR ---
NUTRITION EDUCATION SKIP Provided Diabetes and Reduced Fat Nutrition Education with Pt and Pt's mother with Romansh Translation. SKIP reviewed reference materials with Pt and mother. RD answered all questions. Pt and mother verbalized understanding. Addendum: 11/21/19 at [address] Amended: Links added.
--- NOTE | 2019-11-21 18:54 | NUR ---
DISCHARGE DISCHARGE INSTRUCTIONS GIVEN TO PATIENT AND HER MOTHER, BOTH VERBALIZED UNDERSTANDING. PRESCRIPTIONS SENT TO [facility] IN [place]. IV REMOVED. TELEPAK DISCONTINUED.
== END 2019-11-21 18:35 | disposition home or self-care (01) | DRG 282 ==
LOC: EDH 14:34 → EDHIP 18:13 → 2BH 21:16 → 4AH 11-20 21:28
PROVIDERS: ADMIT Family Medicine; ATTEND Family Medicine
DX: K85.80 Other acute pancreatitis without necrosis or infection (principal); E11.10 Type 2 diabetes mellitus with ketoacidosis without coma; E44.0 Moderate protein-calorie malnutrition; E78.1 Pure hyperglyceridemia; E86.1 Hypovolemia; F84.0 Autistic disorder; E87.1 Hypo-osmolality and hyponatremia; D53.9 Nutritional anemia, unspecified; E03.9 Hypothyroidism, unspecified; M10.9 Gout, unspecified; K86.1 Other chronic pancreatitis; E66.9 Obesity, unspecified; Z68.30 Body mass index [BMI] 30.0-30.9, adult; Z79.4 Long term (current) use of insulin; Z88.8 Allergy status to other drugs, medicaments and biological substances; Z90.49 Acquired absence of other specified parts of digestive tract; Z83.3 Family history of diabetes mellitus; Z82.49 Family history of ischemic heart disease and other diseases of the circulatory system
CPT/HCPCS: 36415; 36600; 74176; 80048; 80053; 80061; 81001; 81025; 82010; 82150; 82435; 82550; 82803; 82947; 82948; 83036; 83540; 83550; 83605; 83690; 83735; 84100; 84132; 84295; 84443; 84478; 84484; 85018; 85025; 85045; 85610; 85730; 93005; 94664; 99291; G0378; J1650; J1815; J1885; J2405; J3475; J3480; J3490; J7042; J7070

== ENCOUNTER 2020-04-26 12:32 | Inpatient (IN) | payer MEDICAID ==
[~2020-04-26] VITALS: Ht 157.5 cm; Wt 70.4 kg
[2020-04-26] MEDS ORDERED: SODIUM CHLORIDE 0.9% 1000ML 1,000 ML IV ONE ×2 (13:28→18:17)
[2020-04-26] MEDS ORDERED: INSULIN HUMULIN R 100 UNIT/ML 3ML ONE ×3 (13:30→20:09)
[2020-04-26 13:33] LABS: BASOPHILS % (AUTO) 0.6 % (0.0-5.0); EOSINOPHILS % (AUTO) 0.6 % (0.0-8.0); HEMATOCRIT 40.9 % (36-48); LYMPHOCYTES % (AUTO) 11.5 % (21.0-51.0); MEAN CORPUSCULAR HEMOGLOBIN 30.5 pg (27.0-33.0); MEAN CORPUSCULAR HGB CONC 35.5 g/dL (32.0-36.0); MEAN CORPUSCULAR VOLUME 86.1 fL (79-99); MONOCYTES % (AUTO) 4.1 % (3.0-13.0); NEUTROPHILS % (AUTO) 82.7 % (40.0-77.0); PLATELET COUNT (AUTO) 319 K/uL (130-400); RED BLOOD CELL COUNT(AUTO) 4.75 MIL/uL (4.00-5.50); RED CELL DISTRIBUTION WIDTH 12.9 % (11.0-15.5); WHITE BLOOD COUNT (AUTO) 15.7 K/uL (4.8-10.8)
[2020-04-26 13:35] LABS: ABG BASE EXCESS -7.2 mmol/L (-2.0-3.0); ABG HCO3 18.3 mmol/L (21.0-28.0); ABG OXYGEN SATURATION 95.7 % (95.0-99.0); ABG PCO2 37 mmHg (32-45)
[2020-04-26] MEDS ORDERED: MORPHINE SULFATE 4 MG/1ML SYG ONE (13:54)
[2020-04-26 14:25] LABS: ALBUMIN 3.3 g/dL (3.5-5.0); BILIRUBIN,TOTAL 1.3 mg/dL (0.2-1.0); CREATININE 0.9 mg/dL (0.5-1.5)
[2020-04-26 15:15] LABS: TOTAL PROTEIN, SERUM 7.7 g/dL (6.0-8.3)
[2020-04-26 15:20] LABS: POTASSIUM 6.8 mmol/L (3.5-5.1)
[2020-04-26] MEDS ORDERED: IOHEXOL-350 75 ML VIAL IV ONE (16:21)
[2020-04-26 16:30] LABS: BILIRUBIN,URINE Negative (NEGATIVE); COLOR,URINE Yellow (YELLOW); GLUCOSE, URINE (UA) >=1000 mg/dL (NEGATIVE); KETONES,URINE >=80 mg/dL (NEGATIVE); LEUKOCYTE ESTERASE ,URINE Negative (NEGATIVE); NITRATE,URINE Negative (NEGATIVE); OCCULT BLOOD,URINE Negative (NEGATIVE); PROTEIN,URINE 300 mg/dL (NEGATIVE); UROBILINOGEN,URINE 0.2 mg/dL (0.2-1.0)
[2020-04-26 17:00] LABS: APPEARANCE,URINE SLIGHTLY CLOUDY (CLEAR)
[2020-04-26 17:03] LABS: BACTERIA,URINE Few /HPF (None Seen); RBC,URINE 0-1 /HPF (0-1); WBC,URINE 0-1 /HPF (0-1); YEAST,URINE BUDDING Few /HPF (None Seen)
[2020-04-26] MEDS ORDERED: ONDANSETRON HCL 4 MG/2 ML VIAL ONE (17:22)
[2020-04-26] MEDS ORDERED: PROMETHAZINE HCL 25 MG/ML 1ML AMPULE IM PRN (18:00)
[2020-04-26 18:07] LABS: ABG BASE EXCESS -6.6 mmol/L (-2.0-3.0); ABG HCO3 19.7 mmol/L (21.0-28.0); ABG OXYGEN SATURATION 92.4 % (95.0-99.0); ABG PCO2 42 mmHg (32-45)
[2020-04-26 18:07] LABS: POTASSIUM 5.5 mmol/L (3.5-5.1)
[2020-04-26 18:27] LABS: CREATININE 0.6 mg/dL (0.5-1.5)
[2020-04-26] MEDS ORDERED: KETOROLAC TROMETHAMINE 30MG/ML ONE (18:44)
[2020-04-26 18:47] LABS: BASOPHILS % (AUTO) 0.4 % (0.0-5.0); EOSINOPHILS % (AUTO) 0.1 % (0.0-8.0); HEMATOCRIT 42.1 % (36-48); LYMPHOCYTES % (AUTO) 10.3 % (21.0-51.0); MEAN CORPUSCULAR HGB CONC 35.6 g/dL (32.0-36.0); MEAN CORPUSCULAR VOLUME 84.2 fL (79-99); MONOCYTES % (AUTO) 3.6 % (3.0-13.0); NEUTROPHILS % (AUTO) 85.2 % (40.0-77.0); PLATELET COUNT (AUTO) 291 K/uL (130-400); RED CELL DISTRIBUTION WIDTH 12.7 % (11.0-15.5); WHITE BLOOD COUNT (AUTO) 10.9 K/uL (4.8-10.8)
[2020-04-26] MEDS ORDERED: INSULIN REGULAR, HUMAN 3ML 100 UNIT in SODIUM CHLORIDE 0.9% 99 ML IV PRN ×4 (19:45→20:00)
[2020-04-26] MEDS ORDERED: POTASSIUM CHLORIDE 20 MEQ ERTAB PO PRN (20:00)
[2020-04-26] MEDS ORDERED: POTASSIUM CHLORIDE 10% ELIXIR 20 MEQ/15 ML UDCUP PO PRN (20:00)
[2020-04-26 20:11] LABS: CHOLESTEROL 492 mg/dL (<200); LDL DIRECT 93 mg/dL (0-99)
[2020-04-26] MEDS ORDERED: CEFTRIAXONE SODIUM 1 GM ONE (20:31)
[2020-04-26] MEDS ORDERED: SODIUM CHLORIDE 0.9% 50 ML IV ONE (20:31)
[2020-04-26 20:46] LABS: HDL CHOLESTEROL 571 mg/dL (35-85); TRIGLYCERIDES 3539 mg/dL (30-200)
[2020-04-26] MEDS ORDERED: INSULIN HUMULIN R 100 UNIT/ML 3ML SQ SCH (21:00)
--- NOTE | 2020-04-26 21:45 | NUR ---
REPORT RECEIVED FROM ED
--- NOTE | 2020-04-26 22:00 | NUR ---
PT HERE FROM ED, IVF's AND INSULIN GTT GOING, MOTHER AT BEDSIDE, SMALL BM AND INCONTINENT URINE, SOILED CLOTHING REMOVED PT GIVEN PARTIAL BATH AND CLEAN GOWN PLACED, VS STABLE, NO SIGNS OF DISTRESS WILL RESUME CARE FOR PT AND CALL FOR ORDERS NEEDED
--- NOTE | 2020-04-26 23:57 | NUR ---
SPOKE SONI PUBLIC RELATIONS ANALYST, REGARDING ORDERS FOR LABS BMP AND MAG, MAG REPLACEMENT PROTOCOL, AND ORDER FOR TYLENOL PRN FOR FEVER PER PUBLIC RELATIONS ANALYST OK TO ORDER
[2020-04-27] VITALS (29 sets, daily range): BP systolic 99–154; BP diastolic 57–83
[2020-04-27] MEDS ORDERED: MAGNESIUM 2GM PREMIX 50ML 50 ML IV PRN (00:15)
[2020-04-27 00:57] LABS: MAGNESIUM 1.7 mg/dL (1.80-2.40); POTASSIUM 3.5 mmol/L (3.5-5.1)
[2020-04-27] MEDS ORDERED: MORPHINE SULFATE 2 MG/ML 1ML SYG ONE (02:26)
[2020-04-27] MEDS: POTASSIUM CHLORIDE 10MEQ/100ML 100 ML IV PRN ×5 (02:27→23:35)
[2020-04-27 04:07] LABS: MAGNESIUM 1.7 mg/dL (1.80-2.40); POTASSIUM 3.8 mmol/L (3.5-5.1)
[2020-04-27] MEDS: KETOROLAC TROMETHAMINE 30MG/ML IM SCH ×2 (07:00→17:59)
[2020-04-27] MEDS: CEFTRIAXONE SODIUM 1 GM IVP SCH ×2 (07:00→20:22)
[2020-04-27] MEDS: SODIUM CHLORIDE 0.9% 1000ML 1,000 ML IV SCH ×3 (07:00→20:26)
[2020-04-27 08:00] LABS: CREATININE 0.8 mg/dL (0.5-1.5); MAGNESIUM 2.4 mg/dL (1.80-2.40); POTASSIUM 3.8 mmol/L (3.5-5.1)
[2020-04-27] MEDS: MORPHINE SULFATE 2 MG/ML 1ML SYG IV PRN ×3 (08:26→16:35)
[2020-04-27 13:15] LABS: CREATININE 0.9 mg/dL (0.5-1.5); MAGNESIUM 2.3 mg/dL (1.80-2.40); POTASSIUM 3.7 mmol/L (3.5-5.1)
--- NOTE | 2020-04-27 16:03 | NUR ---
INITIAL: Spoke w pt's mother Leticia Reed to discuss dcp. Prior to admission pt was living w her mother. She is independent w ambulation and ADLs. She is able to self inject her insulin as prescribed. Pt receives provider services but Mom unable to recall # of hours. Per Mom pt ran out of lantus causing her BS levels to go up. DCP is for pt to return home at [place]. CM to continue to follow and wait for Md recommendations. Addendum: 04/27/20 at 1609 by EDDIE EVANS Amended: Links added.
[2020-04-27 16:20] LABS: CREATININE 0.8 mg/dL (0.5-1.5); MAGNESIUM 2.2 mg/dL (1.80-2.40); POTASSIUM 3.3 mmol/L (3.5-5.1)
[2020-04-27] MEDS ORDERED: HYDROMORPHONE HCL 2 MG/ML VIAL IVP PRN (18:00)
[2020-04-27 20:19] LABS: CREATININE 0.7 mg/dL (0.5-1.5); MAGNESIUM 2.2 mg/dL (1.80-2.40); POTASSIUM 3.7 mmol/L (3.5-5.1)
[2020-04-27] MEDS: ONDANSETRON HCL 4 MG/2 ML VIAL IVP PRN (20:22)
[2020-04-27] MEDS: DEXTROSE 5%-WATER 1,000 ML IV SCH (20:25)
[2020-04-27] MEDS: FISH OIL 1000 MG/CAP PO SCH (20:25)
[2020-04-27] MEDS: ATORVASTATIN CALCIUM 40 MG TABLET PO SCH (20:25)
[2020-04-27] MEDS: LIDOCAINE HCL-MPF 1% 2ML VIAL IV PRN (20:25)
[2020-04-27] MEDS: HYDROMORPHONE HCL 0.5 MG/0.5 ML ML IVP PRN (22:42)
[2020-04-28] VITALS (24 sets, daily range): BP systolic 100–135; BP diastolic 57–78
[2020-04-28] MEDS: ONDANSETRON HCL 4 MG/2 ML VIAL IVP PRN ×3 (02:26→20:29)
[2020-04-28] MEDS: SODIUM CHLORIDE 0.9% 1000ML 1,000 ML IV SCH ×2 (02:28→15:56)
[2020-04-28] MEDS: HYDROMORPHONE HCL 0.5 MG/0.5 ML ML IVP PRN ×4 (02:46→20:30)
[2020-04-28] MEDS ORDERED: DiphenhydrAMINE HCL 50 MG/ML VIAL ONE (03:23)
[2020-04-28] MEDS ORDERED: DiphenhydrAMINE HCL 50 MG/ML VIAL IV ONE (03:30)
[2020-04-28] MEDS ORDERED: DiphenhydrAMINE HCL 50 MG/ML VIAL IV SCH (03:30)
[2020-04-28 03:42] LABS: HEMOGLOBIN A1C 14.3 % (4.0-6.0)
[2020-04-28 04:00] LABS: CREATININE 0.8 mg/dL (0.5-1.5); MAGNESIUM 2.2 mg/dL (1.80-2.40); POTASSIUM 3.8 mmol/L (3.5-5.1); THYROID STIMULATING HORMONE 0.92 uIU/mL (0.36-3.74)
[2020-04-28] MEDS: POTASSIUM CHLORIDE 10MEQ/100ML 100 ML IV PRN ×2 (05:27→20:28)
[2020-04-28] MEDS: LIDOCAINE HCL-MPF 1% 2ML VIAL IV PRN ×2 (05:27→20:28)
[2020-04-28] MEDS: LEVOTHYROXINE 150 MCG TABLET PO SCH (06:32)
[2020-04-28] MEDS: LOSARTAN 50 MG TABLET PO SCH (08:52)
[2020-04-28] MEDS: FENOFIBRATE NANOCRYSTALLIZED 145 MG TAB PO SCH (08:52)
[2020-04-28] MEDS: FISH OIL 1000 MG/CAP PO SCH ×2 (08:52→20:30)
[2020-04-28 08:58] LABS: CREATININE 0.8 mg/dL (0.5-1.5); MAGNESIUM 2.2 mg/dL (1.80-2.40); POTASSIUM 3.9 mmol/L (3.5-5.1)
[2020-04-28 12:40] LABS: CREATININE 0.7 mg/dL (0.5-1.5); MAGNESIUM 2.1 mg/dL (1.80-2.40); POTASSIUM 3.7 mmol/L (3.5-5.1)
[2020-04-28] MEDS: DEXTROSE 5%-WATER 1,000 ML IV SCH (14:00)
[2020-04-28 16:47] LABS: CREATININE 0.8 mg/dL (0.5-1.5); MAGNESIUM 2.1 mg/dL (1.80-2.40); POTASSIUM 3.5 mmol/L (3.5-5.1)
[2020-04-28] MEDS ORDERED: DIPHENHYDRAMINE HCL 25 MG CAPSULE PO PRN (17:15)
[2020-04-28 20:02] LABS: CREATININE 0.7 mg/dL (0.5-1.5); MAGNESIUM 1.9 mg/dL (1.80-2.40); POTASSIUM 3.5 mmol/L (3.5-5.1)
[2020-04-28] MEDS ORDERED: SODIUM CHLORIDE 0.9% 100 ML IV ONE (20:19)
[2020-04-28] MEDS: CEFTRIAXONE SODIUM 1 GM IVP SCH (20:27)
[2020-04-28] MEDS: ATORVASTATIN CALCIUM 40 MG TABLET PO SCH (20:30)
[2020-04-29] VITALS (17 sets, daily range): BP systolic 107–144; BP diastolic 63–83
[2020-04-29 03:28] LABS: HEMATOCRIT 30.9 % (36-48); MEAN CORPUSCULAR HEMOGLOBIN 27.6 pg (27.0-33.0); MEAN CORPUSCULAR HGB CONC 32.4 g/dL (32.0-36.0); MEAN CORPUSCULAR VOLUME 85.4 fL (79-99); RED BLOOD CELL COUNT(AUTO) 3.62 MIL/uL (4.00-5.50); RED CELL DISTRIBUTION WIDTH 13.5 % (11.0-15.5); WHITE BLOOD COUNT (AUTO) 7.8 K/uL (4.8-10.8)
[2020-04-29 03:35] LABS: CREATININE 0.6 mg/dL (0.5-1.5); MAGNESIUM 7.7 mg/dL (1.80-2.40); POTASSIUM 3.3 mmol/L (3.5-5.1)
[2020-04-29] MEDS: DEXTROSE 5%-WATER 1,000 ML IV SCH (05:09)
[2020-04-29] MEDS: SODIUM CHLORIDE 0.9% 1000ML 1,000 ML IV SCH (05:09)
[2020-04-29] MEDS: POTASSIUM CHLORIDE 10MEQ/100ML 100 ML IV PRN (06:31)
[2020-04-29] MEDS: LIDOCAINE HCL-MPF 1% 2ML VIAL IV PRN (06:32)
[2020-04-29] MEDS: LEVOTHYROXINE 150 MCG TABLET PO SCH (06:37)
[2020-04-29] MEDS: LOSARTAN 50 MG TABLET PO SCH (07:52)
[2020-04-29] MEDS: FENOFIBRATE NANOCRYSTALLIZED 145 MG TAB PO SCH (07:52)
[2020-04-29] MEDS: FISH OIL 1000 MG/CAP PO SCH ×2 (07:52→20:26)
[2020-04-29 08:30] LABS: CREATININE 0.7 mg/dL (0.5-1.5); MAGNESIUM 1.9 mg/dL (1.80-2.40); POTASSIUM 3.6 mmol/L (3.5-5.1)
--- NOTE | 2020-04-29 08:45 | NUR ---
Dr Olivas at bedside, new orders given
--- NOTE | 2020-04-29 08:55 | NUR ---
Dr Santamaria notified via phone about new consult
[2020-04-29] MEDS: INSULIN LISPRO 100 UNIT/ML 3ML SQ SCH ×5 (10:28→20:35)
[2020-04-29] MEDS: BISACODYL 5 MG TABLET.DR PO SCH ×2 (10:35→20:26)
--- NOTE | 2020-04-29 12:20 | NUR ---
Pt tolerated clear liquids, no c/o nausea or vomiting.
--- NOTE | 2020-04-29 16:10 | NUR ---
Report given to Orlando Lane RN, transferred to room 421, PCCU, via wheelchair. Patient's Father at bedside.
[2020-04-29] MEDS: ATORVASTATIN CALCIUM 40 MG TABLET PO SCH (20:25)
[2020-04-29] MEDS: CEFTRIAXONE SODIUM 1 GM IVP SCH (20:26)
[2020-04-29] MEDS ORDERED: INSULIN GLARGINE 100 UNITS/ML 10 ML VIAL SQ SCH (21:00)
[2020-04-30 00:03] VITALS: BP 133/76
[2020-04-30 04:02] VITALS: BP 121/67
[2020-04-30] MEDS: LEVOTHYROXINE 150 MCG TABLET PO SCH (05:34)
[2020-04-30] MEDS: INSULIN LISPRO 100 UNIT/ML 3ML SQ SCH ×3 (05:36→12:36)
--- NOTE | 2020-04-30 07:00 | NUR ---
DR. BROCK HERE ,AND REVIEW PT BLOOD SUGARS , AND RESULTS , AND EXPLAIN TO PT .AND PT FATHER OF DISCHARGE PLAN CARE OF HER BLOOD SUGARS . DR BROCK STATED THAT HE REVIEW HER BLOOD SUGARS RESULTS AND WANT HER TO GO HOME, WITH THE HUMALOG 10 UNITS SQ TID BEFORE MEALS AND 30 UNITS OF LANTUS AT HS, AND TO FOLLOW HIM IN HIS OFFICE IN ONE WEEKS, REVIEW QUESTIONS AND DIET. OKAY TO DISCHARGE ,
[2020-04-30 08:01] VITALS: BP 143/73
[2020-04-30] MEDS: FISH OIL 1000 MG/CAP PO SCH (09:47)
[2020-04-30] MEDS: LOSARTAN 50 MG TABLET PO SCH (09:47)
[2020-04-30] MEDS: BISACODYL 5 MG TABLET.DR PO SCH (09:48)
[2020-04-30] MEDS: FENOFIBRATE NANOCRYSTALLIZED 145 MG TAB PO SCH (09:48)
[2020-04-30] MEDS ORDERED: INSLAN SQ (10:01)
[2020-04-30 11:26] VITALS: BP 137/71
[2020-04-30] MEDS ORDERED: INSULIN LISPRO 100 UNIT/ML 3ML SQ SCH (11:30)
--- NOTE | 2020-04-30 11:58 | NUR ---
RD TEACHING NOTE Pt seen for teaching due to high TG and BG levels. Pt has hx of autism. RD spoke to legal guardian and pt for lifestyle modifications. Father stated pt tends to eat healthy and has her own foods at home. However, due to pandemic there is less physical activity and more eating. Pt and father were encouraged to make lifestyle changes as a whole family. Pt was encouraged to take walks in their yard, and to find a [employer] workout videos that she enjoys. Handouts for carbohydrate, and low fat were given to pt and pt's father. RD gave extension to office for further questions. RD will continue to follow pt's status. Contact dietary as nutritional concerns arise. Addendum: 04/30/20 at [address] Amended: Links added.
--- NOTE | 2020-04-30 12:19 | NUR ---
RD NOTIFICATION Pt admitted due to hyponatremia, hyperkalemia and pancreatitis. Pt has clinically improved, as per EMR. Pt has hx of autism. Legal guardian is at bedside. RD consult placed for Education on a low fat, low cholesterol and DM control. Pt's father stated pt has had DM since the age of 9. Pt is independent regarding her insulin and ADLs. Pt's father stated, pt normally eats healthy however, due to pandemic pt has decreased physical activity. Low sodium alternatives were recommended, low fat versions were encouraged, and physical activity was encouraged to the pt. RD RECOMMENDATION: Continue current diet order. Monitor TG, BG and NA lab values. Continue supplementation of fish oil. Pt may benefit from MVI supplementation as well. Diet education has been conducted 04/30/20 RD will continue to follow. Thank you. LABS: TG 605, ALB 3.3, TOT PRO 7.7, BG 243, K 3.6, NA 135 Addendum: 04/30/20 at [address] Amended: Links added.
--- NOTE | 2020-04-30 14:30 | NUR ---
DISCHARGE SUMMARY WAS REVIEWED WITH ;MOTHER , DUE TO PT HISTORY, REGARDING HER INSULIN CHANGES AND DR. BROCK HOME ORDERS AND TO FOLLOWUP WITH HIM ONE WEEK AFTER DISCHARGE APPT WERE MADE FOR HER PRIVATE DR, AND DR BROCK . REVIEW SUMMARY , AND DR. ORDERS SL TO HER RAC AND LAC WERE TAKEN OUT ,WITH NO REDNESS OR HEMATOMA . A SM PRESSURE DRSG APPLICATIONS ON. VOICED NO C/O OF DISCOMFORT. HX OF DIABETIC TYPE ONE. PER FAMILY INFORMATION . MEDICATIONS WERE REVIEW AND UNDERSTOOD . CHANGES ON HER INSULINS CARE WITH BLOOD SUGARS CHECKS .
[2020-04-30] MEDS ORDERED: INSULIN GLARGINE 100 UNITS/ML 10 ML VIAL SQ SCH (21:00)
== END 2020-04-30 14:30 | disposition home or self-care (01) | DRG 282 ==
LOC: EDH 12:32 → EDHIP 12:33 → 2DH 21:40 → 4DH 04-29 16:23
PROVIDERS: ADMIT Hospitalist; ATTEND Hospitalist
DX: K85.80 Other acute pancreatitis without necrosis or infection (principal); E78.1 Pure hyperglyceridemia; E10.10 Type 1 diabetes mellitus with ketoacidosis without coma; E87.1 Hypo-osmolality and hyponatremia; I10 Essential (primary) hypertension; E03.9 Hypothyroidism, unspecified; E78.49 Other hyperlipidemia; Z79.4 Long term (current) use of insulin
CPT/HCPCS: 36415; 36600; 71045; 74178; 80048; 80053; 80061; 81001; 82010; 82150; 82435; 82550; 82803; 82947; 82948; 83036; 83605; 83690; 83735; 84132; 84295; 84443; 84478; 84484; 84702; 85018; 85025; 85027; 87040; 93005; G0378; J0696; J1170; J1200; J1815; J1885; J2270; J2405; J3475; J3490; J7030; J7070; Q0163; Q9967

== ENCOUNTER 2020-09-25 02:30 | Inpatient (IN) | payer MEDICAID ==
[2020-09-25] VITALS (18 sets, daily range): BP systolic 110–166; BP diastolic 63–82
[~2020-09-25] VITALS: Ht 157.5 cm; Wt 78.0 kg
[2020-09-25] MEDS ORDERED: ONDANSETRON HCL 4 MG/2 ML VIAL ONE ×2 (02:49→04:07)
[2020-09-25 02:56] LABS: APPEARANCE,URINE Clear (CLEAR); BILIRUBIN,URINE Negative (NEGATIVE); COLOR,URINE Yellow (YELLOW); GLUCOSE, URINE (UA) >=1000 mg/dL (NEGATIVE); KETONES,URINE 40 mg/dL (NEGATIVE); LEUKOCYTE ESTERASE ,URINE Negative (NEGATIVE); NITRATE,URINE Negative (NEGATIVE); OCCULT BLOOD,URINE Negative (NEGATIVE); PROTEIN,URINE POS 2+ mg/dL (NEGATIVE); UROBILINOGEN,URINE 0.2 mg/dL (0.2-1.0)
[2020-09-25 03:05] LABS: HCG,QUAL RESULT NEGATIVE (NEGATIVE)
[2020-09-25] MEDS ORDERED: INSULIN HUMULIN R 100 UNIT/ML 3ML ONE ×2 (03:05→05:20)
[2020-09-25] MEDS ORDERED: SODIUM CHLORIDE 0.9% 1000ML 1,000 ML IV ONE ×4 (03:05→05:21)
[2020-09-25 03:08] LABS: BACTERIA,URINE Few /HPF (None Seen); RBC,URINE 0-1 /HPF (0-1); SQUAMOUS EPITHELIAL CELL,UR Moderate /HPF (0-2); YEAST,URINE BUDDING Rare /HPF (None Seen)
[2020-09-25 03:14] LABS: BASOPHILS % (AUTO) 0.5 % (0.0-5.0); EOSINOPHILS % (AUTO) 2.3 % (0.0-8.0); HEMATOCRIT 33.2 % (36-48); LYMPHOCYTES % (AUTO) 27.1 % (21.0-51.0); MEAN CORPUSCULAR HEMOGLOBIN 32.3 pg (27.0-33.0); MEAN CORPUSCULAR HGB CONC 40.4 g/dL (32.0-36.0); MONOCYTES % (AUTO) 6.5 % (3.0-13.0); PLATELET COUNT (AUTO) 435 K/uL (130-400); RED BLOOD CELL COUNT(AUTO) 4.15 MIL/uL (4.00-5.50); WHITE BLOOD COUNT (AUTO) 9.5 K/uL (4.8-10.8)
[2020-09-25 03:40] LABS: ALBUMIN 3.2 g/dL (3.5-5.0)
[2020-09-25 03:44] LABS: BILIRUBIN,TOTAL 0.4 mg/dL (0.2-1.0)
[2020-09-25 03:45] LABS: TOTAL PROTEIN, SERUM 6.6 g/dL (6.0-8.3)
[2020-09-25 03:49] LABS: POTASSIUM 6.1 mmol/L (3.5-5.1)
[2020-09-25 03:53] LABS: ABG BASE EXCESS -2.8 mmol/L (-2.0-3.0); ABG HCO3 23.4 mmol/L (21.0-28.0); ABG OXYGEN SATURATION 95.4 % (95.0-99.0); ABG PCO2 46 mmHg (32-45)
[2020-09-25] MEDS ORDERED: CALCIUM GLUCONATE 1 GM/10 ML VIAL IV ONE (04:06)
[2020-09-25] MEDS ORDERED: SODIUM POLYSTYRENE SULFONATE 15 GM/60 ML ML ONE (04:06)
[2020-09-25] MEDS ORDERED: SODIUM BICARB 50MEQ 50ML VIAL 50 ML ONE (04:07)
[2020-09-25] MEDS ORDERED: SODIUM CHLORIDE 0.9% 50 ML IV ONE (04:10)
[2020-09-25] MEDS: SODIUM CHLORIDE 0.9% 1000ML 1,000 ML IV SCH ×7 (04:45→22:02)
[2020-09-25 04:50] LABS: HDL CHOLESTEROL 202 mg/dL (35-85); LDL DIRECT 62 mg/dL (0-99); TRIGLYCERIDES 7482 mg/dL (30-200)
[2020-09-25] MEDS ORDERED: DEXTROSE 5 %-0.45 % NACL 1,000 ML IV PRN (05:00)
[2020-09-25] MEDS ORDERED: INSULIN REGULAR, HUMAN 3ML 100 UNIT in SODIUM CHLORIDE 0.9% 99 ML IV PRN ×2 (05:00)
[2020-09-25] MEDS ORDERED: POTASSIUM CHLORIDE 10MEQ/100ML 100 ML IV PRN (05:00)
[2020-09-25] MEDS ORDERED: METOCLOPRAMIDE 10 MG/2 ML VIAL ONE (05:09)
[2020-09-25] MEDS ORDERED: SODIUM CHLORIDE 0.9% 100 ML IV ONE (05:21)
[2020-09-25 05:43] LABS: CHOLESTEROL > 600 mg/dL (<200)
[2020-09-25 05:50] LABS: POTASSIUM 4.1 mmol/L (3.5-5.1)
[2020-09-25] MEDS: KETOROLAC TROMETHAMINE 15MG/ML IV PRN ×4 (06:39→23:46)
[2020-09-25] MEDS: ONDANSETRON HCL 4 MG/2 ML VIAL IV PRN ×3 (06:40→20:39)
[2020-09-25] MEDS: FAMOTIDINE/PF 20 MG/2 ML VIAL IV SCH ×2 (08:43→22:03)
[2020-09-25 09:18] LABS: MAGNESIUM 1.7 mg/dL (1.80-2.40); POTASSIUM 3.5 mmol/L (3.5-5.1)
[2020-09-25 09:48] LABS: CREATININE 0.6 mg/dL (0.5-1.5)
[2020-09-25 15:29] LABS: MAGNESIUM 1.7 mg/dL (1.80-2.40); POTASSIUM 3.5 mmol/L (3.5-5.1)
[2020-09-25 15:43] LABS: CREATININE 0.6 mg/dL (0.5-1.5)
[2020-09-25] MEDS ORDERED: D5 NS WITH 20 mEq KCl 1000ML IV SCH (17:30)
[2020-09-25] MEDS: D5 NS WITH 20 mEq KCl 1000ML 1,000 ML IV SCH (18:28)
[2020-09-25 22:19] LABS: MAGNESIUM 1.5 mg/dL (1.80-2.40); PHOSPHORUS 1.6 mg/dL (2.5-4.9)
[2020-09-26] VITALS (23 sets, daily range): BP systolic 100–150; BP diastolic 60–74
[2020-09-26] MEDS: SODIUM CHLORIDE 0.9% 1000ML 1,000 ML IV SCH ×5 (01:21→19:34)
[2020-09-26] MEDS: D5 NS WITH 20 mEq KCl 1000ML 1,000 ML IV SCH ×4 (01:21→19:33)
[2020-09-26] MEDS: ONDANSETRON HCL 4 MG/2 ML VIAL IV PRN ×3 (02:02→19:27)
[2020-09-26 04:00] LABS: CREATININE 0.9 mg/dL (0.5-1.5); MAGNESIUM 1.7 mg/dL (1.80-2.40); PHOSPHORUS 1.5 mg/dL (2.5-4.9); POTASSIUM 3.6 mmol/L (3.5-5.1)
[2020-09-26] MEDS: KETOROLAC TROMETHAMINE 15MG/ML IV PRN ×3 (05:43→22:13)
[2020-09-26] MEDS: FAMOTIDINE/PF 20 MG/2 ML VIAL IV SCH ×2 (08:57→19:34)
[2020-09-26] MEDS ORDERED: SOD PHOSPHATE 45 MMOL/15 ML VI 15 MMOL in SODIUM CHLORIDE 0.9% 250 ML IV PRN (09:30)
[2020-09-26] MEDS ORDERED: POTASSIUM PHOS 15 mMOL+NS250ML 250 ML IV PRN (09:30)
[2020-09-26 09:34] LABS: MAGNESIUM 1.6 mg/dL (1.80-2.40); POTASSIUM 3.2 mmol/L (3.5-5.1)
[2020-09-26 15:22] LABS: POTASSIUM 3.8 mmol/L (3.5-5.1)
[2020-09-26 15:29] LABS: MAGNESIUM 1.7 mg/dL (1.80-2.40)
[2020-09-26 15:37] LABS: CREATININE 0.8 mg/dL (0.5-1.5)
[2020-09-26] MEDS: MAGNESIUM 2GM PREMIX 50ML 50 ML IV PRN (18:12)
[2020-09-26] MEDS: ZOSYN 3.375GM+NS 50ML 50 ML IV SCH (18:12)
[2020-09-26] MEDS: MORPHINE SULFATE 2 MG/ML 1ML SYG IVP PRN (19:33)
[2020-09-26 21:15] LABS: CREATININE 0.8 mg/dL (0.5-1.5); MAGNESIUM 2.3 mg/dL (1.80-2.40); POTASSIUM 3.2 mmol/L (3.5-5.1)
[2020-09-27] VITALS (24 sets, daily range): BP systolic 103–143; BP diastolic 55–72
[2020-09-27] MEDS: ZOSYN 3.375GM+NS 50ML 50 ML IV SCH ×3 (00:32→16:22)
[2020-09-27] MEDS: SODIUM CHLORIDE 0.9% 1000ML 1,000 ML IV SCH ×5 (00:32→20:38)
[2020-09-27] MEDS: D5 NS WITH 20 mEq KCl 1000ML 1,000 ML IV SCH ×4 (01:54→22:07)
[2020-09-27] MEDS: MORPHINE SULFATE 2 MG/ML 1ML SYG IVP PRN ×3 (01:54→19:35)
[2020-09-27] MEDS: ONDANSETRON HCL 4 MG/2 ML VIAL IV PRN ×2 (03:04→14:38)
[2020-09-27 04:26] LABS: CREATININE 0.8 mg/dL (0.5-1.5); MAGNESIUM 2.5 mg/dL (1.80-2.40); PHOSPHORUS 1.6 mg/dL (2.5-4.9)
[2020-09-27] MEDS: KETOROLAC TROMETHAMINE 15MG/ML IV PRN (05:28)
[2020-09-27] MEDS: FAMOTIDINE/PF 20 MG/2 ML VIAL IV SCH ×2 (09:22→20:38)
[2020-09-27 11:03] LABS: CREATININE 0.9 mg/dL (0.5-1.5); POTASSIUM 3.8 mmol/L (3.5-5.1)
[2020-09-28] VITALS (22 sets, daily range): BP systolic 120–165; BP diastolic 68–88
[2020-09-28] MEDS: ZOSYN 3.375GM+NS 50ML 50 ML IV SCH ×3 (00:35→17:31)
[2020-09-28] MEDS: ONDANSETRON HCL 4 MG/2 ML VIAL IV PRN (00:35)
[2020-09-28] MEDS ORDERED: SODIUM CHLORIDE 0.9% 500ML 500 ML IV ONE (01:06)
[2020-09-28] MEDS ORDERED: INSULIN HUMULIN R 100 UNIT/ML 3ML ONE (02:08)
[2020-09-28] MEDS ORDERED: SODIUM CHLORIDE 0.9% 100 ML IV ONE (02:09)
[2020-09-28] MEDS: SODIUM CHLORIDE 0.9% 1000ML 1,000 ML IV SCH ×5 (03:00→22:06)
[2020-09-28 04:15] LABS: CREATININE 0.8 mg/dL (0.5-1.5); POTASSIUM 4.1 mmol/L (3.5-5.1); THYROID STIMULATING HORMONE 1.5 uIU/mL (0.36-3.74)
[2020-09-28] MEDS: D5 NS WITH 20 mEq KCl 1000ML 1,000 ML IV SCH ×3 (06:16→18:50)
[2020-09-28] MEDS ORDERED: DIATR MEGLU/DIATRIZOATE SODIUM 30 ML BOTTLE ONE (08:21)
[2020-09-28] MEDS: FAMOTIDINE/PF 20 MG/2 ML VIAL IV SCH ×2 (09:28→21:58)
[2020-09-28] MEDS ORDERED: IOHEXOL 350 MG/ML 100ML INFUS..BTL IV ONE (10:10)
[2020-09-28 10:33] LABS: LIPASE 417 U/L (114-286); TRIGLYCERIDES 917 mg/dL (30-200)
[2020-09-28] MEDS ORDERED: INSULIN GLARGINE 100 UNITS/ML 10 ML VIAL SQ ONE (17:30)
[2020-09-28] MEDS: ATORVASTATIN CALCIUM 20 MG TABLET PO SCH (21:57)
[2020-09-28] MEDS: FISH OIL 1000 MG/CAP PO SCH (21:58)
[2020-09-29] VITALS (10 sets, daily range): BP systolic 123–160; BP diastolic 59–74
[2020-09-29] MEDS: ZOSYN 3.375GM+NS 50ML 50 ML IV SCH ×3 (01:17→17:30)
[2020-09-29] MEDS: D5 NS WITH 20 mEq KCl 1000ML 1,000 ML IV SCH ×2 (01:30→08:10)
[2020-09-29 03:41] LABS: BASOPHILS % (AUTO) 0.3 % (0.0-5.0); EOSINOPHILS % (AUTO) 3.2 % (0.0-8.0); HEMATOCRIT 26.7 % (36-48); LYMPHOCYTES % (AUTO) 27.5 % (21.0-51.0); MEAN CORPUSCULAR HEMOGLOBIN 27.8 pg (27.0-33.0); MEAN CORPUSCULAR VOLUME 84.2 fL (79-99); NEUTROPHILS % (AUTO) 64.5 % (40.0-77.0); PLATELET COUNT (AUTO) 227 K/uL (130-400); RED BLOOD CELL COUNT(AUTO) 3.17 MIL/uL (4.00-5.50); RED CELL DISTRIBUTION WIDTH 14.6 % (11.0-15.5); WHITE BLOOD COUNT (AUTO) 9.6 K/uL (4.8-10.8)
[2020-09-29 03:53] LABS: ALBUMIN 1.9 g/dL (3.5-5.0); BILIRUBIN,TOTAL 0.4 mg/dL (0.2-1.0); CREATININE 0.8 mg/dL (0.5-1.5); CRP QUANTITATIVE 55.5 mg/L (0.00-9.0); MAGNESIUM 1.8 mg/dL (1.80-2.40); PHOSPHORUS 5.7 mg/dL (2.5-4.9); POTASSIUM 3.5 mmol/L (3.5-5.1); TOTAL PROTEIN, SERUM 6.1 g/dL (6.0-8.3)
[2020-09-29] MEDS: MAGNESIUM 2GM PREMIX 50ML 50 ML IV PRN (06:14)
[2020-09-29] MEDS: INSULIN HUMULIN R 100 UNIT/ML 3ML SQ SCH ×5 (06:29→21:07)
[2020-09-29] MEDS: SODIUM CHLORIDE 0.9% 1000ML 1,000 ML IV SCH (08:00)
[2020-09-29] MEDS: FAMOTIDINE/PF 20 MG/2 ML VIAL IV SCH ×2 (08:22→21:02)
[2020-09-29] MEDS: FISH OIL 1000 MG/CAP PO SCH ×2 (08:22→21:02)
[2020-09-29] MEDS: FENOFIBRATE NANOCRYSTALLIZED 145 MG TAB PO SCH (08:23)
[2020-09-29] MEDS: ATORVASTATIN CALCIUM 20 MG TABLET PO SCH (08:23)
[2020-09-29] MEDS: INSULIN HUMULIN 70/30 100 UNIT/ML 3ML SQ SCH ×3 (08:24→17:31)
[2020-09-29] MEDS ORDERED: FENOFIBRATE NANOCRYSTALLIZED 145 MG TAB PO SCH (09:00)
[2020-09-29] MEDS ORDERED: INSULIN GLARGINE 100 UNITS/ML 10 ML VIAL SQ SCH (20:20)
[2020-09-30] MEDS ORDERED: HYDRALAZINE HCL 20 MG/ML VIAL IV SCH
[2020-09-30 00:07] VITALS: BP 170/77
[2020-09-30] MEDS ORDERED: LISI10TA24 PO (00:12)
[2020-09-30 00:13] VITALS: BP 159/72
[2020-09-30] MEDS: ZOSYN 3.375GM+NS 50ML 50 ML IV SCH ×2 (01:05→10:57)
[2020-09-30 03:49] VITALS: BP 153/47
[2020-09-30 05:29] LABS: BASOPHILS % (AUTO) 0.4 % (0.0-5.0); EOSINOPHILS % (AUTO) 3.8 % (0.0-8.0); LYMPHOCYTES % (AUTO) 35.9 % (21.0-51.0); MEAN CORPUSCULAR HEMOGLOBIN 26.6 pg (27.0-33.0); MEAN CORPUSCULAR VOLUME 80.8 fL (79-99); MONOCYTES % (AUTO) 9.2 % (3.0-13.0); PLATELET COUNT (AUTO) 265 K/uL (130-400); RED BLOOD CELL COUNT(AUTO) 3.34 MIL/uL (4.00-5.50); RED CELL DISTRIBUTION WIDTH 13.7 % (11.0-15.5); WHITE BLOOD COUNT (AUTO) 6.9 K/uL (4.8-10.8)
[2020-09-30] MEDS: INSULIN HUMULIN R 100 UNIT/ML 3ML SQ SCH ×3 (05:37→16:29)
[2020-09-30 05:53] LABS: BILIRUBIN,TOTAL 0.3 mg/dL (0.2-1.0); CREATININE 0.6 mg/dL (0.5-1.5); CRP QUANTITATIVE 27.2 mg/L (0.00-9.0); TOTAL PROTEIN, SERUM 6.4 g/dL (6.0-8.3)
[2020-09-30] MEDS ORDERED: INSULIN HUMULIN 70/30 100 UNIT/ML 3ML SQ ONE ×2 (06:27→16:01)
[2020-09-30] MEDS: INSULIN HUMULIN 70/30 100 UNIT/ML 3ML SQ SCH ×2 (06:38→12:01)
[2020-09-30 07:00] VITALS: BP 153/64
[2020-09-30] MEDS ORDERED: POTASSIUM CHLORIDE 20 MEQ ERTAB PO PRN (07:30)
[2020-09-30] MEDS ORDERED: LIDOCAINE HCL-MPF 1% 2ML VIAL IV PRN (07:30)
[2020-09-30] MEDS ORDERED: POTASSIUM CHLORIDE 20MEQ/100ML 100 ML IV PRN (07:30)
[2020-09-30] MEDS ORDERED: POTASSIUM CHLORIDE 10% ELIXIR 20 MEQ/15 ML UDCUP PO PRN (07:30)
[2020-09-30] MEDS ORDERED: ATORVASTATIN CALCIUM 20 MG TABLET PO SCH (10:30)
[2020-09-30] MEDS: FISH OIL 1000 MG/CAP PO SCH (10:56)
[2020-09-30] MEDS: FAMOTIDINE/PF 20 MG/2 ML VIAL IV SCH (10:56)
[2020-09-30] MEDS: FENOFIBRATE NANOCRYSTALLIZED 145 MG TAB PO SCH (10:57)
[2020-09-30 11:30] VITALS: BP 157/82
[2020-09-30] MEDS ORDERED: POTASSIUM CHLORIDE 20 MEQ ERTAB PO SCH ×2 (13:15→15:50)
[2020-09-30] MEDS ORDERED: HUM10VIA SQ (13:18)
[2020-09-30] MEDS ORDERED: OMEG1CAP31 PO (13:18)
[2020-09-30] MEDS ORDERED: FENO145T26 PO (13:18)
[2020-09-30 16:00] VITALS: BP 147/87
[2020-09-30] MEDS ORDERED: INSULIN HUMULIN 70/30 100 UNIT/ML 3ML SQ SCH (17:30)
== END 2020-09-30 17:30 | disposition home or self-care (01) | DRG 420 ==
LOC: EDH 02:30 → EDHIP 02:31 → 2DH 06:03 → 3BH 09-29 15:04
PROVIDERS: ADMIT Internal Medicine; ATTEND Internal Medicine
DX: E10.10 Type 1 diabetes mellitus with ketoacidosis without coma (principal); E87.3 Alkalosis; K85.90 Acute pancreatitis without necrosis or infection, unspecified; E78.1 Pure hyperglyceridemia; E86.0 Dehydration; E86.1 Hypovolemia; E87.1 Hypo-osmolality and hyponatremia; E03.9 Hypothyroidism, unspecified; E78.5 Hyperlipidemia, unspecified; E87.5 Hyperkalemia; E87.6 Hypokalemia; Z20.822 Contact with and (suspected) exposure to COVID-19; Z91.19 Patient's noncompliance with other medical treatment and regimen; Z79.899 Other long term (current) drug therapy; Z79.4 Long term (current) use of insulin; Z83.3 Family history of diabetes mellitus; Z82.49 Family history of ischemic heart disease and other diseases of the circulatory system; Z90.49 Acquired absence of other specified parts of digestive tract; Z91.14 Patient's other noncompliance with medication regimen
CPT/HCPCS: 36415; 36600; 74176; 74177; 80048; 80053; 80061; 81001; 81025; 82010; 82150; 82550; 82803; 82947; 82948; 83690; 83735; 84100; 84132; 84443; 84478; 84484; 85025; 86140; 87426; 93005; 99291; G0378; J0360; J0610; J1815; J1885; J2405; J2543; J2765; J3475; J3480; J3490; J7030; J7040; J7050; Q9963; Q9967; U0003

== ENCOUNTER 2021-03-19 13:34 | Inpatient (IN) | payer MEDICAID ==
[~2021-03-19] VITALS: Ht 162.6 cm; Wt 68.0 kg
[~2021-03-19 13:34] MED LIST changes: +HUM10VIA SQ; -INSLAN SQ; -INSU100V SQ; +LISI10TA24 PO; -LOSA50TA64 PO; -NIAC250T34 PO; -OMEP40CA13 PO; +OMEP40CA21 PO
[2021-03-19] MEDS ORDERED: ONDANSETRON ODT 4MG TAB SL STA (14:36)
[2021-03-19] MEDS ORDERED: KETOROLAC 30MG VIAL (30MG/ML) IM STA (14:36)
[2021-03-19 15:48] LABS: BASOPHILS % (AUTO) 0.5 % (0.0-5.0); EOSINOPHILS % (AUTO) 2.8 % (0.0-8.0); HEMATOCRIT 38.1 % (36-48); LYMPHOCYTES % (AUTO) 20.7 % (21.0-51.0); MEAN CORPUSCULAR VOLUME 85.2 fL (79-99); MONOCYTES % (AUTO) 9.5 % (3.0-13.0); NEUTROPHILS % (AUTO) 66.2 % (40.0-77.0); PLATELET COUNT (AUTO) 267 K/uL (130-400); RED BLOOD CELL COUNT(AUTO) 4.47 MIL/uL (4.00-5.50); RED CELL DISTRIBUTION WIDTH 13.5 % (11.0-15.5); WHITE BLOOD COUNT (AUTO) 10.1 K/uL (4.8-10.8)
[2021-03-19 16:04] LABS: APPEARANCE,URINE Clear (CLEAR); BILIRUBIN,URINE Negative (NEGATIVE); COLOR,URINE Yellow (YELLOW); GLUCOSE, URINE (UA) >=1000 mg/dL (NEGATIVE); KETONES,URINE >=160 mg/dL (NEGATIVE); LEUKOCYTE ESTERASE ,URINE Negative (NEGATIVE); NITRATE,URINE Negative (NEGATIVE); OCCULT BLOOD,URINE Negative (NEGATIVE); PROTEIN,URINE POS 2+ mg/dL (NEGATIVE); UROBILINOGEN,URINE 0.2 mg/dL (0.2-1.0)
[2021-03-19 16:19] LABS: POTASSIUM 4.4 mmol/L (3.5-5.1); SODIUM SERUM 118 mmol/L (136-145)
[2021-03-19 16:21] LABS: LIPASE < 50 U/L (114-286)
[2021-03-19 16:22] LABS: MEAN CORPUSCULAR HEMOGLOBIN 31.1 pg (27.0-33.0); MEAN CORPUSCULAR HGB CONC 36.4 g/dL (32.0-36.0)
[2021-03-19 16:23] LABS: CHLORIDE 83 mmol/L (101-111); GLUCOSE,RANDOM 714 mg/dL (70-105)
[2021-03-19 16:27] LABS: BACTERIA,URINE Few /HPF (None Seen); SQUAMOUS EPITHELIAL CELL,UR Moderate /HPF (0-2); YEAST,URINE BUDDING Few /HPF (None Seen)
[2021-03-19 16:28] LABS: MUCUS,URINE Moderate LPF (None Seen)
[2021-03-19] MEDS ORDERED: INSULIN HUMULIN R 100 UNIT/ML 3ML IV STA (16:28)
[2021-03-19] MEDS ORDERED: 0.9%NACL 1000ML 1,000 ML IV ONE ×3 (16:30)
[2021-03-19 17:07] LABS: ABG BASE EXCESS -10.7 mmol/L (-2.0-3.0); ABG HCO3 14.7 mmol/L (21.0-28.0); ABG OXYGEN SATURATION 96.9 % (95.0-99.0); ABG PCO2 31 mmHg (32-45)
[2021-03-19 17:46] LABS: ALBUMIN 3.1 g/dL (3.5-5.0); AMYLASE 32 U/L (25-115); BILIRUBIN,TOTAL 0.8 mg/dL (0.2-1.0); TOTAL PROTEIN, SERUM 8.6 g/dL (6.0-8.3); UREA NITROGEN, BLOOD 22 mg/dL (7-18)
[2021-03-19 17:52] LABS: CARBON DIOXIDE 13 mmol/L (21-32)
[2021-03-19 18:09] LABS: CREATININE 1.1 mg/dL (0.5-1.5); GLOMERULAR FILTR. RATE CALC 58 mL/min (>60)
[2021-03-19] MEDS ORDERED: INSULIN HUMULIN R 100 UNIT/ML 3ML ONE (18:12)
[2021-03-19 19:04] LABS: ASPARTATE AMINOTRANSFERASE 20 U/L (10-37)
[2021-03-19] MEDS ORDERED: 0.9% NACL 500ML IV.SOLN 500 ML IV ONE (19:43)
[2021-03-19] MEDS ORDERED: INSULIN HUMULIN R 100 UNIT/ML 3ML SQ STA (19:54)
[2021-03-19] MEDS ORDERED: POTASSIUM CHLORIDE 10MEQ/100ML 100 ML IV PRN (20:00)
[2021-03-19] MEDS ORDERED: POTASSIUM CHLORIDE 10% ELIXIR 20 MEQ/15 ML UDCUP PO PRN (20:00)
[2021-03-19] MEDS ORDERED: ZOSYN 3.375GM+NS 50ML 3.38 GM in 0.9%NACL 50ML 50 ML IV SCH (20:00)
[2021-03-19] MEDS ORDERED: CLONIDINE HCL 0.1 MG TABLET PO PRN ×2 (20:00)
[2021-03-19] MEDS ORDERED: 0.9%NACL 1000ML 1,000 ML IV SCH (20:00)
[2021-03-19] MEDS ORDERED: LIDOCAINE HCL-MPF 1% 2ML VIAL IV PRN ×2 (20:00)
[2021-03-19] MEDS ORDERED: POTASSIUM CHLORIDE 20MEQ/100ML 100 ML IV PRN ×2 (20:00)
[2021-03-19] MEDS ORDERED: ACETAMINOPHEN 650 MG SUPPOSITORY RC PRN (20:00)
[2021-03-19] MEDS ORDERED: POTASSIUM PHOS 15 mMOL+NS250ML IV ONE (20:00)
[2021-03-19] MEDS: INSULIN REGULAR, HUMAN 3ML 100 UNIT in 0.9%NACL 100ML 99 ML IV SCH ×6 (20:22→23:00)
[2021-03-19] MEDS ORDERED: POTASSIUM PHOS 15 mMOL+NS250ML 250 ML IV SCH (20:30)
[2021-03-19 20:57] LABS: ALANINE AMINOTRANSFERASE 10 U/L (12-78)
[2021-03-19] MEDS ORDERED: 0.9%NACL 50ML 50 ML IV ONE (21:17)
[2021-03-19] MEDS: ZOSYN 3.375GM +NS 50ML IV SCH (22:14)
[2021-03-19] MEDS: INSULIN GLARGINE 100 UNITS/ML 10 ML VIAL SQ SCH (22:15)
[2021-03-19] MEDS: 0.9%NACL 1000ML 1,000 ML IV SCH (23:00)
[2021-03-19] MEDS: MORPHINE 2 MG SYG IVP PRN (23:20)
[2021-03-20] VITALS (12 sets, daily range): BP systolic 129–169; BP diastolic 65–84
[2021-03-20] MEDS ORDERED: [UNRECOGNIZED DRUG - OTHER] PO (00:09)
[2021-03-20] MEDS ORDERED: LOSA50TA64 PO (00:09)
[2021-03-20] MEDS ORDERED: INSLAN SQ (00:12)
[2021-03-20] MEDS: DEXTROSE 5 %-0.45 % NACL 1,000 ML IV PRN ×2 (00:30→07:10)
[2021-03-20] MEDS: INSULIN REGULAR, HUMAN 3ML 100 UNIT in 0.9%NACL 100ML 99 ML IV SCH ×12 (01:00→04:47)
[2021-03-20 03:53] LABS: BASOPHILS % (AUTO) 0.6 % (0.0-5.0); EOSINOPHILS % (AUTO) 4.9 % (0.0-8.0); HEMATOCRIT 31.6 % (36-48); LYMPHOCYTES % (AUTO) 28.9 % (21.0-51.0); MEAN CORPUSCULAR VOLUME 83.4 fL (79-99); MONOCYTES % (AUTO) 15.4 % (3.0-13.0); NEUTROPHILS % (AUTO) 49.8 % (40.0-77.0); PLATELET COUNT (AUTO) 250 K/uL (130-400); RED BLOOD CELL COUNT(AUTO) 3.79 MIL/uL (4.00-5.50); RED CELL DISTRIBUTION WIDTH 13.5 % (11.0-15.5); WHITE BLOOD COUNT (AUTO) 7.7 K/uL (4.8-10.8)
[2021-03-20 03:59] LABS: MEAN CORPUSCULAR HGB CONC 33.5 g/dL (32.0-36.0)
[2021-03-20 04:04] LABS: MAGNESIUM 1.4 mg/dL (1.80-2.40); POTASSIUM 3.6 mmol/L (3.5-5.1)
[2021-03-20] MEDS ORDERED: MORPHINE 4 MG SYG ONE (04:32)
[2021-03-20] MEDS: MORPHINE 2 MG SYG IVP PRN ×3 (04:37→21:07)
[2021-03-20 05:10] LABS: CREATININE 0.7 mg/dL (0.5-1.5); PHOSPHORUS 3.8 mg/dL (2.5-4.9)
[2021-03-20 07:05] LABS: APPEARANCE,URINE Clear (CLEAR); BILIRUBIN,URINE Negative (NEGATIVE); COLOR,URINE Yellow (YELLOW); GLUCOSE, URINE (UA) >=1000 mg/dL (NEGATIVE); KETONES,URINE >=80 mg/dL (NEGATIVE); LEUKOCYTE ESTERASE ,URINE Negative (NEGATIVE); NITRATE,URINE Negative (NEGATIVE); OCCULT BLOOD,URINE Negative (NEGATIVE); PROTEIN,URINE POS 2+ mg/dL (NEGATIVE); UROBILINOGEN,URINE 0.2 mg/dL (0.2-1.0)
[2021-03-20 07:12] LABS: BACTERIA,URINE Rare /HPF (None Seen); RBC,URINE 0-1 /HPF (0-1); SQUAMOUS EPITHELIAL CELL,UR Rare /HPF (0-2); WBC,URINE 0-1 /HPF (0-1)
[2021-03-20] MEDS: 0.9%NACL 1000ML 1,000 ML IV SCH ×3 (07:30→11:42)
[2021-03-20] MEDS: ZOSYN 3.375GM +NS 50ML IV SCH ×3 (08:00→20:55)
[2021-03-20] MEDS: INSULIN GLARGINE 100 UNITS/ML 10 ML VIAL SQ SCH (08:26)
[2021-03-20] MEDS ORDERED: METOCLOPRAMIDE 10 MG/2 ML VIAL ONE (10:59)
[2021-03-20] MEDS: METOCLOPRAMIDE 10 MG/2 ML VIAL IVP SCH ×2 (11:43→17:38)
[2021-03-20] MEDS: ONDANSETRON 4MG INJ IVP PRN ×2 (12:11→23:08)
[2021-03-20] MEDS ORDERED: SODIUM BICARB 50MEQ 50ML VIAL 100 ML ONE (12:53)
[2021-03-20] MEDS ORDERED: 0.9%NACL 50ML 50 ML IV ONE (12:54)
[2021-03-20 14:59] LABS: ABG BASE EXCESS -3.1 mmol/L (-2.0-3.0); ABG HCO3 22.1 mmol/L (21.0-28.0); ABG OXYGEN SATURATION 92.4 % (95.0-99.0); ABG PCO2 40 mmHg (32-45)
[2021-03-20] MEDS ORDERED: INSULIN GLARGINE 100 UNITS/ML 10 ML VIAL SQ ONE (15:30)
[2021-03-20 17:02] LABS: POTASSIUM 3.5 mmol/L (3.5-5.1)
[2021-03-20 18:46] LABS: CREATININE 0.7 mg/dL (0.5-1.5)
[2021-03-20] MEDS ORDERED: 0.9%NACL 100ML 100 ML ONE (20:48)
[2021-03-20] MEDS: ATORVASTATIN 40 MG TABLET PO SCH (20:55)
[2021-03-20] MEDS ORDERED: PANTOPRAZOLE 40 MG TAB DR ONE (23:00)
[2021-03-20] MEDS: PANTOPRAZOLE 40 MG TAB DR PO SCH (23:00)
[2021-03-21] VITALS (17 sets, daily range): BP systolic 124–177; BP diastolic 63–89
[2021-03-21 04:03] LABS: HEMATOCRIT 33.4 % (36-48); RED BLOOD CELL COUNT(AUTO) 3.91 MIL/uL (4.00-5.50); RED CELL DISTRIBUTION WIDTH 13.8 % (11.0-15.5)
[2021-03-21] MEDS ORDERED: 0.9%NACL 100ML 100 ML ONE ×2 (04:21→08:17)
[2021-03-21 04:30] LABS: MAGNESIUM 1.9 mg/dL (1.80-2.40); POTASSIUM 3.5 mmol/L (3.5-5.1)
[2021-03-21] MEDS: ZOSYN 3.375GM +NS 50ML IV SCH (05:04)
[2021-03-21 05:20] LABS: PHOSPHORUS 1.6 mg/dL (2.5-4.9)
[2021-03-21 05:31] LABS: CREATININE 0.3 mg/dL (0.5-1.5)
[2021-03-21] MEDS: INSULIN HUMULIN R 100 UNIT/ML 3ML SQ SCH ×5 (06:00→20:26)
[2021-03-21] MEDS: LEVOTHYROXINE 150 MCG TABLET PO SCH (06:17)
[2021-03-21] MEDS: METOCLOPRAMIDE 10 MG/2 ML VIAL IVP SCH ×3 (06:17→16:32)
[2021-03-21] MEDS: MAGNESIUM 2GM PREMIX 50ML 50 ML IV PRN (06:17)
[2021-03-21] MEDS ORDERED: POTASSIUM PHOS 15 mMOL+NS250ML 250 ML IV PRN (07:30)
[2021-03-21] MEDS ORDERED: INSULIN GLARGINE 100 UNITS/ML 10 ML VIAL SQ SCH ×2 (07:30→21:00)
[2021-03-21] MEDS: FENOFIBRATE NANOCRYSTALLIZED 145 MG TAB PO SCH (08:43)
[2021-03-21] MEDS: PANTOPRAZOLE 40 MG TAB DR PO SCH ×2 (08:43→19:31)
[2021-03-21] MEDS: LOSARTAN 50 MG TABLET PO SCH (08:43)
[2021-03-21] MEDS: ENOXAPARIN SODIUM 30 MG/0.3 ML SQ SCH (08:44)
[2021-03-21] MEDS: DEXTROSE 5 %-0.45 % NACL 1,000 ML IV PRN (08:44)
[2021-03-21 09:16] LABS: POTASSIUM 3.4 mmol/L (3.5-5.1)
[2021-03-21 10:15] LABS: CREATININE 0.8 mg/dL (0.5-1.5)
[2021-03-21 10:37] LABS: MEAN CORPUSCULAR HEMOGLOBIN 28.5 pg (27.0-33.0); MEAN CORPUSCULAR VOLUME 86.2 fL (79-99)
[2021-03-21 11:42] LABS: ABG BASE EXCESS -2.5 mmol/L (-2.0-3.0); ABG HCO3 22.3 mmol/L (21.0-28.0); ABG OXYGEN SATURATION 97.4 % (95.0-99.0); ABG PCO2 39 mmHg (32-45)
[2021-03-21 13:22] LABS: CREATININE 0.8 mg/dL (0.5-1.5); POTASSIUM 3.4 mmol/L (3.5-5.1)
[2021-03-21] MEDS: LACTULOSE 20 GM/30 ML UDCUP PO PRN (15:28)
[2021-03-21] MEDS ORDERED: INSULIN HUMULIN R 100 UNIT/ML 3ML SQ SCH (16:30)
[2021-03-21] MEDS: ATORVASTATIN 40 MG TABLET PO SCH (19:31)
[2021-03-21] MEDS: INSULIN GLARGINE 100 UNITS/ML 10 ML VIAL SQ SCH (20:27)
[2021-03-22 01:19] LABS: POTASSIUM 3.2 mmol/L (3.5-5.1)
[2021-03-22] MEDS: MORPHINE 2 MG SYG IVP PRN (01:37)
[2021-03-22] MEDS: KCL 20 MEQ ERTAB PO PRN ×2 (01:42→03:01)
[2021-03-22 02:25] LABS: CREATININE 0.8 mg/dL (0.5-1.5)
[2021-03-22 03:53] VITALS: BP 147/87
[2021-03-22] MEDS: ONDANSETRON 4MG INJ IVP PRN (04:16)
[2021-03-22] MEDS: METOCLOPRAMIDE 10 MG/2 ML VIAL IVP SCH ×3 (06:04→16:55)
[2021-03-22] MEDS: LEVOTHYROXINE 150 MCG TABLET PO SCH (06:04)
[2021-03-22] MEDS: INSULIN GLARGINE 100 UNITS/ML 10 ML VIAL SQ SCH ×2 (06:05→20:49)
[2021-03-22] MEDS: INSULIN HUMULIN R 100 UNIT/ML 3ML SQ SCH ×6 (06:06→20:48)
[2021-03-22 06:25] LABS: POTASSIUM 3.6 mmol/L (3.5-5.1)
[2021-03-22 07:21] LABS: CREATININE 0.7 mg/dL (0.5-1.5)
[2021-03-22] MEDS ORDERED: INSULIN HUMULIN R 100 UNIT/ML 3ML SQ SCH (07:30)
[2021-03-22] MEDS ORDERED: SODIUM BICARB 50MEQ 50ML VIAL IV SCH (07:51)
[2021-03-22 08:07] VITALS: BP 153/79
[2021-03-22] MEDS: LOSARTAN 50 MG TABLET PO SCH (10:03)
[2021-03-22] MEDS: ACETAMINOPHEN 325 MG TAB PO PRN (10:03)
[2021-03-22] MEDS: FENOFIBRATE NANOCRYSTALLIZED 145 MG TAB PO SCH (10:03)
[2021-03-22] MEDS: PANTOPRAZOLE 40 MG TAB DR PO SCH ×2 (10:03→20:38)
[2021-03-22] MEDS: ENOXAPARIN SODIUM 30 MG/0.3 ML SQ SCH (10:04)
[2021-03-22 11:19] LABS: MAGNESIUM 1.7 mg/dL (1.80-2.40); POTASSIUM 3.8 mmol/L (3.5-5.1)
[2021-03-22 11:47] LABS: CREATININE 0.6 mg/dL (0.5-1.5); PHOSPHORUS 1.8 mg/dL (2.5-4.9)
[2021-03-22 11:52] VITALS: BP 160/87
[2021-03-22] MEDS ORDERED: POTASSIUM PHOS 15 mMOL+NS250ML 250 ML IV PRN (12:30)
[2021-03-22] MEDS: MAGNESIUM 2GM PREMIX 50ML 50 ML IV PRN (13:04)
[2021-03-22 16:55] VITALS: BP 153/82
[2021-03-22 20:04] VITALS: BP 159/87
[2021-03-22 20:20] LABS: POTASSIUM 3.8 mmol/L (3.5-5.1)
[2021-03-22 20:25] LABS: MAGNESIUM 1.9 mg/dL (1.80-2.40)
[2021-03-22] MEDS: LACTULOSE 20 GM/30 ML UDCUP PO PRN (20:37)
[2021-03-22] MEDS: ATORVASTATIN 40 MG TABLET PO SCH (20:38)
[2021-03-22] MEDS: 0.9%NACL 1000ML 1,000 ML IV SCH (20:44)
[2021-03-22 21:00] LABS: CREATININE 0.8 mg/dL (0.5-1.5)
[2021-03-22] MEDS ORDERED: INSULIN GLARGINE 100 UNITS/ML 10 ML VIAL SQ SCH (21:00)
[2021-03-22 21:01] LABS: PHOSPHORUS 1.8 mg/dL (2.5-4.9)
[2021-03-23 00:09] VITALS: BP 162/81
[2021-03-23] MEDS: LEVOTHYROXINE 150 MCG TABLET PO SCH (04:01)
[2021-03-23] MEDS: ACETAMINOPHEN 325 MG TAB PO PRN ×3 (04:02→15:58)
[2021-03-23 04:11] VITALS: BP 160/65
[2021-03-23 04:52] LABS: HEMATOCRIT 34.1 % (36-48); MEAN CORPUSCULAR VOLUME 84.4 fL (79-99); RED BLOOD CELL COUNT(AUTO) 4.04 MIL/uL (4.00-5.50); RED CELL DISTRIBUTION WIDTH 14.1 % (11.0-15.5); WHITE BLOOD COUNT (AUTO) 5.7 K/uL (4.8-10.8)
[2021-03-23 05:03] LABS: POTASSIUM 3.8 mmol/L (3.5-5.1)
[2021-03-23 05:06] LABS: MAGNESIUM 1.7 mg/dL (1.80-2.40)
[2021-03-23 05:19] LABS: MEAN CORPUSCULAR HEMOGLOBIN 27.6 pg (27.0-33.0)
[2021-03-23 05:20] LABS: MEAN CORPUSCULAR HGB CONC 32.4 g/dL (32.0-36.0)
[2021-03-23 06:08] LABS: PHOSPHORUS 2.7 mg/dL (2.5-4.9)
[2021-03-23] MEDS: INSULIN HUMULIN R 100 UNIT/ML 3ML SQ SCH ×4 (06:08→11:29)
[2021-03-23] MEDS: METOCLOPRAMIDE 10 MG/2 ML VIAL IVP SCH ×2 (06:13→11:24)
[2021-03-23] MEDS: MAGNESIUM 2GM PREMIX 50ML 50 ML IV PRN ×2 (06:14→15:11)
[2021-03-23 07:28] LABS: CREATININE 0.5 mg/dL (0.5-1.5)
[2021-03-23] MEDS: INSULIN GLARGINE 100 UNITS/ML 10 ML VIAL SQ SCH (07:34)
[2021-03-23] MEDS: PANTOPRAZOLE 40 MG TAB DR PO SCH (07:45)
[2021-03-23] MEDS: FENOFIBRATE NANOCRYSTALLIZED 145 MG TAB PO SCH (07:45)
[2021-03-23] MEDS: KCL 20 MEQ ERTAB PO PRN (07:46)
[2021-03-23] MEDS: LACTULOSE 20 GM/30 ML UDCUP PO PRN (07:47)
[2021-03-23] MEDS: ENOXAPARIN SODIUM 30 MG/0.3 ML SQ SCH (07:49)
[2021-03-23] MEDS ORDERED: SODIUM BICARB 50MEQ 50ML VIAL IV SCH (07:54)
[2021-03-23 07:56] VITALS: BP 144/76
[2021-03-23 07:57] LABS: POTASSIUM 3.6 mmol/L (3.5-5.1)
[2021-03-23 08:24] LABS: CREATININE 0.5 mg/dL (0.5-1.5)
[2021-03-23 08:25] LABS: MAGNESIUM 2.2 mg/dL (1.80-2.40); PHOSPHORUS 2.4 mg/dL (2.5-4.9)
[2021-03-23] MEDS ORDERED: LOSARTAN 100 MG TABLET PO SCH (09:00)
[2021-03-23] MEDS: 0.9%NACL 1000ML 1,000 ML IV SCH (10:55)
[2021-03-23 11:20] VITALS: BP 122/66
[2021-03-23 14:19] LABS: MAGNESIUM 1.7 mg/dL (1.80-2.40); POTASSIUM 4.1 mmol/L (3.5-5.1)
[2021-03-23 14:54] LABS: CREATININE 0.6 mg/dL (0.5-1.5)
[2021-03-23] MEDS ORDERED: SODIUM CHLORIDE 1,000 MG TAB PO SCH (15:00)
[2021-03-23] MEDS ORDERED: POTASSIUM PHOS 15 mMOL+NS250ML 250 ML IV PRN (15:00)
[2021-03-23 15:19] LABS: ABG OXYGEN SATURATION 40.1 % (95.0-99.0); BASE EXCESS,VENOUS BLOOD GAS 2.5 (-2.0-3.0); HCO3,VENOUS BLOOD GAS 28.4 (21.0-28.0); PCO2,VENOUS BLOOD GAS 49 (32-45); PH,VENOUS BLOOD GAS 7.383 (7.350-7.450)
[2021-03-23 16:01] VITALS: BP 146/78
[2021-03-23] MEDS ORDERED: INSULIN GLARGINE 100 UNITS/ML 10 ML VIAL SQ SCH (21:00)
== END 2021-03-23 17:00 | disposition left against medical advice (07) | DRG 420 ==
LOC: EDH 13:34 → EDHIP 13:35 → 2DH 03-20 11:35 → 3DH 03-21 15:45
PROVIDERS: ADMIT Internal Medicine Critical Care Medicine; ATTEND Internal Medicine Critical Care Medicine
DX: E10.10 Type 1 diabetes mellitus with ketoacidosis without coma (principal); E43 Unspecified severe protein-calorie malnutrition; E83.42 Hypomagnesemia; E86.0 Dehydration; E87.1 Hypo-osmolality and hyponatremia; E78.5 Hyperlipidemia, unspecified; F84.0 Autistic disorder; E03.9 Hypothyroidism, unspecified; Z20.822 Contact with and (suspected) exposure to COVID-19; E78.00 Pure hypercholesterolemia, unspecified; E86.1 Hypovolemia; E78.1 Pure hyperglyceridemia; I10 Essential (primary) hypertension; Z68.25 Body mass index [BMI] 25.0-25.9, adult; Z79.890 Hormone replacement therapy; Z79.4 Long term (current) use of insulin; Z79.899 Other long term (current) drug therapy; Z90.49 Acquired absence of other specified parts of digestive tract; Z91.14 Patient's other noncompliance with medication regimen; Z91.19 Patient's noncompliance with other medical treatment and regimen; Z83.3 Family history of diabetes mellitus; Z82.49 Family history of ischemic heart disease and other diseases of the circulatory system
CPT/HCPCS: 36415; 36600; 71045; 74176; 80048; 80053; 81001; 81025; 82010; 82150; 82435; 82550; 82803; 82947; 82948; 83036; 83605; 83690; 83735; 83874; 83880; 83930; 84100; 84132; 84295; 84484; 85018; 85025; 85027; 85378; 86677; 87040; 87088; 87635; 93005; G0378; J1650; J1815; J1885; J2270; J2405; J2543; J2765; J3475; J3490; J7030; J7040; J7042

== ENCOUNTER 2022-08-26 15:00 | Emergency (ER) | payer MEDICARE ==
[~2022-08-26] VITALS: Ht 157.5 cm; Wt 62.6 kg
[~2022-08-26 15:00] MED LIST changes: +INSLAN SQ; +LOSA50TA64 PO; -OMEP40CA21 PO; +[UNRECOGNIZED DRUG - OTHER] PO
[2022-08-26] MEDS ORDERED: 0.9%NACL 1000ML 2,000 ML IV ONE (15:30)
[2022-08-26 16:19] LABS: BASOPHILS % (AUTO) 0.5 % (0.0-5.0); EOSINOPHILS % (AUTO) 0.5 % (0.0-8.0); HEMATOCRIT 38.2 % (36-48); LYMPHOCYTES % (AUTO) 19.4 % (21.0-51.0); MEAN CORPUSCULAR HEMOGLOBIN 27.8 pg (27.0-33.0); MEAN CORPUSCULAR VOLUME 81.6 fL (79-99); MONOCYTES % (AUTO) 4.9 % (3.0-13.0); NEUTROPHILS % (AUTO) 74.1 % (40.0-77.0); PLATELET COUNT (AUTO) 298 K/uL (130-400); RED BLOOD CELL COUNT(AUTO) 4.68 MIL/uL (4.00-5.50); RED CELL DISTRIBUTION WIDTH 12.7 % (11.0-15.5); WHITE BLOOD COUNT (AUTO) 11.1 K/uL (4.8-10.8)
[2022-08-26 16:41] LABS: ABG BASE EXCESS -4.1 mmol/L (-2.0-3.0); ABG HCO3 20.8 mmol/L (21.0-28.0); ABG OXYGEN SATURATION 96.2 % (95.0-99.0); ABG PCO2 38 mmHg (32-45)
[2022-08-26 16:44] LABS: ALBUMIN 3.6 g/dL (3.5-5.0); CREATININE 1.4 mg/dL (0.5-1.5); POTASSIUM 3.9 mmol/L (3.5-5.1); TOTAL PROTEIN, SERUM 8.7 g/dL (6.0-8.3)
[2022-08-26 19:55] VITALS: BP 132/62
== END 2022-08-26 20:04 | disposition home or self-care (01) ==
LOC: EDH 15:00
DX: E11.65 Type 2 diabetes mellitus with hyperglycemia (principal); E78.00 Pure hypercholesterolemia, unspecified; I10 Essential (primary) hypertension; Z79.899 Other long term (current) drug therapy
CPT/HCPCS: 99284; 96360; 71045; 80053; 82803; 83690; 85025; 82948 ×2; 83605; 82010; 36415; 36600; J7030

== ENCOUNTER → 2024-07-27 | Emergency (ER) | payer OTHER, MEDICARE ==
[~2024-07-27] VITALS: Ht 162.6 cm; Wt 90.7 kg
[~2024-07-27] MED LIST changes: +LACT10SO9 PO; -LISI10TA24 PO; -LOSA50TA64 PO
[2024-07-27 17:12] VITALS: BP 164/79; PULSE 96; RESP 20; O2SAT 98
--- NOTE | 2024-07-27 17:14 | HMCIMG ---
Exam Type: CHEST 1VW Clinical Information: CP Comparison: None Findings: The lungs are clear of infiltrates. The heart is normal in size. The bony and soft tissue structures of the chest are unremarkable. Impression: Clear lungs.
[2024-07-27 17:43] LABS: BASOPHILS # (AUTO) 0.05 K/uL (0.00-0.20); BASOPHILS % (AUTO) 0.4 % (0.0-5.0); EOSINOPHILS # (AUTO) 0.12 K/uL (0.00-0.70); HEMATOCRIT 34.1 % (36-48); IMMATURE GRANULOCYTE ABSOLUTE 0.06 K/uL (0-1); LYMPHOCYTES # (AUTO) 2.1 K/uL (1.0-4.8); MEAN CORPUSCULAR HEMOGLOBIN 27.9 pg (27.0-33.0); MONOCYTES # (AUTO) 0.9 K/uL (0.1-1.0); MONOCYTES % (AUTO) 7.1 % (3.0-13.0); NEUTROPHILS # (AUTO) 9.1 K/uL (1.8-7.7); PLATELET COUNT (AUTO) 247 K/uL (130-400); RED BLOOD CELL COUNT(AUTO) 4.16 MIL/uL (4.00-5.50); RED CELL DISTRIBUTION WIDTH 12.8 % (11.0-15.5); WHITE BLOOD COUNT (AUTO) 12.3 K/uL (4.8-10.8)
[2024-07-27 17:57] LABS: MAGNESIUM 1.4 mg/dL (1.80-2.40); POTASSIUM 3.4 mmol/L (3.5-5.1)
[2024-07-27 18:08] LABS: B-TYPE NATRIURETIC PEPTIDE 86 pg/mL (0-100)
--- NOTE | 2024-07-27 19:37 | EKG ---
[facility] Test Date: 2024-07-27 Test Time: 15:52:10 Pat Name: MARIAH SOLOMON Department: ED Room: Gender: F [employer] Director: [id number] : 1980 Requested By: SHIREEN CARUSO Order Number: [id number] Reading MD: Amanuel Ruvalcaba Measurements Intervals [place] Rate: 94 P: 59 CO: 146 QRS: 213 QRSD: 96 T: 40 QT: 389 QTc: 488 Interpretive Statements Sinus rhythm Markedly posterior QRS axis Compared to ECG 03/19/2021 16:33:13 Posterior QRS axis now present Myocardial infarct finding no longer present Electronically Signed On 07-28-2024 17:38:56 STITCHER SPECIAL MACHINE by Amanuel Ruvalcaba Please click the below link to view image of tracing.
== END | disposition left against medical advice (07) ==
LOC: EDH 15:59
DX: R73.9 Hyperglycemia, unspecified (principal); R07.89 Other chest pain; Z53.21 Procedure and treatment not carried out due to patient leaving prior to being seen by health care provider
CPT/HCPCS: 36415; 71045; 80048; 82550; 83735; 83880; 84484; 85025; 93005